=== PATIENT | female | born 1990 ===

== ENCOUNTER 2024-08-06 21:00 | Inpatient (IN) | payer MEDICAID, OTHER, SELFPAY ==
[2024-08-06 22:40] VITALS: BMI 16.4
--- NOTE | 2024-08-07 00:44 | PC.ADMIT ---
Vianey is a 34 year old female, admitted on from [facility] for treatment of psychosis. Pt was presented to [facility] with a chief complaint of auditory hallucination. Family reports she has history of psychosis which required inpatient hospitalization. States she was previously taking risperidone and has been off it for quite some times. She was responding to internal stimuli and appeared to be psychotic. She was trying to leave the POD, [facility] and was given IM Ativan 2mg and haldol 5mg, restrained at 1334 on 08/05. On unit admission, Pt arrived at 2130 on a wheel chair. She was uncooperative with TW during assessment, crying loud, self dialoguing and agitating to go home. Pt appeared to be responding to internal stimuli and hearing voices. She refused to sign/fill any paper works including release of information, Menu, statement of understanding of valuables and notice of rights for temporary involuntary hospitalization. Safety/skin check done, v/s and wt checked. Hospitalist notified for consultation, treatment plan and safety tools was initiated.
--- NOTE | 2024-08-07 04:14 | PC.NURSE ---
Pt requested PRN Atarax @ 6375 and did not take it, held it in her hands and states this is 104mg and not 25mg . Meds collected and wasted. She came back and requested for same meds @ 3465, pretend to take it but cheeks and splits out the meds. Meds recovered and wasted by RN
[2024-08-07 07:38] VITALS: BP 99/70; PULSE 109; RESP 16; TEMP 37.1; O2SAT 99
--- NOTE | 2024-08-07 08:52 | P.HPPS_ITS ---
HPI Date of Service: 08/07/24 Chief Complaint: unspecified schizophrenia Sources of Information: patient interviewed, chart reviewed and crisis/core team assessment reviewed HPI Subjective Notes: Amaral Warning and Conditional Voluntary Narrative: Patient is a 34-year-old female with history of psychosis who presented to ER with family due to not eating or drinking and auditory hallucinations secondary to medication noncompliance. Per crisis report, patient presented to ER with family due to not eating or drinking. Patient told family she is hearing voices and crying a lot. Family reports patient has a history of psychosis which has required inpatient hospitalization. History of taking risperidone, which she has not taken for quite some time. Patient history limited due to patient responding to internal stimuli during assessment. Utox negative. During admission assessment, patient presents calm, cooperative and guarded. Thought blocking. Delayed responses. Patient reports she came to the hospital because my friend brought me since I ate something I was not supposed to eat and I have not slept in 4 days . Patient did not disclose what she believes she ate that she was not supposed to. denies substance use. Utox negative. Patient signed CV and stated she would like help . denies SI/HI/VH/AH. Patient appears to be internally preoccupied during assessment. She reports history of having auditory hallucinations however, could not recall what medication she took to make her feel better. Discussed starting on risperidone; patient agreed to trial. Past Psychiatric History: Per crisis report, patient hospitalized in 2022. History of taking risperidone. Medical Evaluation Reviewed: Yes [facility] Family History: Denies Social History: Lives with roommate, single, one 9-year-old son. 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 Substance History: Denies Trauma History: Denies Diagnostics Vital Signs (24Hr): Vital Signs - 24 hr 08/07/24 07:38 Temperature 98.8 F Pulse Rate 109 H Respiratory Rate 16 Blood Pressure 99/70 Pulse Oximetry 99 Oxygen Delivery Method Room Air BMI result Body Mass Index 16.4 Meds/Allergies Meds Home Medications ?Medication ?Instructions ?Recorded ?Confirmed ?Type No Known Home Meds 08/07/24 08/07/24 History Allergies Allergies Allergy/AdvReac Type Severity Reaction Status Date / Time No Known Allergies Allergy Verified 08/06/24 22:09 Mental Status Exam Mental Status Exam Patient Appearance: Appropriate Patient Orientation: Person, Place and Situation Level of Consciousness: Awake and Alert Patient Behavior: Guarded and Good Eye Contact Mood Description: Anxious Affect Description: Blunted Ability to Follow Directions: Fair Speech Pattern: Clear and Delayed Thought Content: positive for Thought Blocking Assessment & Plan Assessment & Plan (1) Psychosis: Status: Acute Code(s): F29 - Unspecified psychosis not due to a substance or known physiological condition Plan Patient is a 34-year-old female with history of psychosis who presented to ER with family due to not eating or drinking and auditory hallucinations secondary to medication noncompliance. Plan: CV 15 minute safety checks Start: Risperdal 1 mg b.i.d. Obtain collateral Encourage groups Referral to outpatient psychiatric providers Discharge planning Patient educated on: diagnosis and medication risk/benefits Reason for continued inpatient stay Substantial Risk for: med/psych decompensation Statement Statement: I have reviewed the history and physical and performed a pertinent examination on my patient. No changes have occurred unless specified. If the History and Physical was not performed prior to admission, the Hospitalist's service will be consulted for completing the admission physical. Time Spent With Patient Time: Total time managing care of this patient today _60___ minutes.
--- NOTE | 2024-08-07 09:58 | PM.EVENT ---
Event Note Date of Service: 08/07/24 Event Note: Hospitalist consult for new psych admission transfer from [facility]. per chart no medical history aside from mood disorder. attempted to meet with pt and she declined. states she is waiting for dinner (it's 10am). when asked again about any medical concerns she turned her head and did not respond. Thank you for allowing me to participate in the pt's care, she declined medical consult at this time. Please contact the medical team if any questions or concerns. Time Spent With Patient Time: Total time managing care of this patient today 5 minutes.
[2024-08-07] MEDS: risperiDONE 1 MG TABLET PO ×2 (10:34→18:54)
[2024-08-07] MEDS: LORazepam 0.5 MG TABLET PO (18:55)
[2024-08-07 20:00] VITALS: BP 103/64; PULSE 111; RESP 17; TEMP 36.4; O2SAT 100
[2024-08-08 07:00] VITALS: BMI 16.5
[2024-08-08 07:20] VITALS: BP 109/70; PULSE 120; RESP 14; TEMP 36.6; O2SAT 98
[2024-08-08] MEDS: risperiDONE 1 MG TABLET PO ×2 (08:22→20:22)
--- NOTE | 2024-08-08 09:30 | P.PNPSI_ITS ---
Subjective Subjective Date of Service: 08/08/24 Reason For Visit: unspecified schizophrenia Subjective Notes: Conditional Voluntary Interim History: Keeping to self. observing pacing unit hallway. Paranoid. Met with patient in unit office. presents guarded and thought blocking. She reports feeling okay then stated, you are infusing chemicals into this place to make me feel tired . She continues internally preoccupied but denies AH/VH. Pt walked out of interv iew room mid conversation when asked if she felt safe on the unit. per nursing, slept 7 hours. medication compliant. Continue current tx plan. Medication Compliance: Yes Side effects from medications: No Attending Groups: No Review of Systems Constitutional: Reports as per HPI Eyes: Reports as per HPI Reports as per HPI Cardiovascular: Reports as per HPI Respiratory: Reports as per HPI Gastrointestinal: Reports as per HPI Genitourinary: Reports as per HPI Musculoskeletal: Reports as per HPI Skin/Breast: Reports as per HPI Reports as per HPI Psychiatric: Reports as per HPI Endocrine: Reports as per HPI Hematologic/Lymphatic: Reports as per HPI Allergic/Immunologic: Reports as per HPI Mental Status Exam Mental Status Exam Narrative: Pt is alert and oriented; behavior is guarded; dressed in casual attire; mood is described as fine ; eye contact appropriate; Speech is slow rate, low volume; guarded, paranoid ideations; appears to be internally preoccupied however denying AH/VH. Diagnostics Vital Signs (24Hr): Vital Signs - 24 hr 08/07/24 20:00 08/08/24 07:20 Temperature 97.5 F 97.8 F Pulse Rate 111 H 120 H Respiratory Rate 17 14 Blood Pressure 103/64 109/70 Pulse Oximetry 100 98 Oxygen Delivery Method Room Air Room Air BMI result Body Mass Index 16.4 Medications Medications Current Medications Acetaminophen (Acetaminophen 325 Mg Tablet) 650 mg PO Q6H PRN PRN Reason: Headache/Pain Mild Scale (1-3) Al Hydroxide/Mg Hydroxide (Magnesium Hydrox/Alum Hydrox 30 Ml Oral.Susp) 30 ml PO Q6H PRN PRN Reason: Heartburn/Nausea Hydroxyzine HCl (Hydroxyzine Hcl 25 Mg Tablet) 25 mg PO Q6H PRN PRN Reason: Anxiety Lorazepam (Lorazepam 0.5 Mg Tablet) 0.5 mg PO BEDTIME [facility] Last Admin: 08/07/24 18:55 Dose: 0.5 mg Magnesium Hydroxide (Milk Of Magnesia 30 Ml Oral.Susp) 30 ml PO DAILY PRN PRN Reason: Constipation Nicotine Polacrilex (Nicotine Polacrilex 2 Mg Gum) 4 mg BUCCAL Q2H PRN PRN Reason: Nicotine Cravings Risperidone (Risperidone 1 Mg Tablet) 1 mg PO BID [facility] Last Admin: 08/08/24 08:22 Dose: 1 mg Trazodone HCl (Trazodone Hcl 50 Mg Tablet) 50 mg PO BEDTIME MRX1 PRN PRN Reason: Insomnia Allergies Allergies Allergy/AdvReac Type Severity Reaction Status Date / Time No Known Allergies Allergy Verified 08/06/24 22:09 Assessment & Plan Assessment & Plan (1) Psychosis: Status: Acute Code(s): F29 - Unspecified psychosis not due to a substance or known physiological condition Plan Patient is a 34-year-old female with history of psychosis who presented to ER with family due to not eating or drinking and auditory hallucinations secondary to medication noncompliance. Plan: CV 15 minute safety checks Start: Risperdal 1 mg b.i.d. Obtain collateral Encourage groups Referral to outpatient psychiatric providers Discharge planning 08/08: Keeping to self. observing pacing unit hallway. Paranoid. Met with patient in unit office. presents guarded and thought blocking. She reports feeling okay then stated, you are infusing chemicals into this place to make me feel tired . She continues internally preoccupied but denies AH/VH. Pt walked out of interview room mid conversation when asked if she felt safe on the unit. per nursing, slept 7 hours. medication compliant. Continue current tx plan. Patient educated on: medication risk/benefits Reason for continued inpatient stay Substantial Risk for: med/psych decompensation Time Spent With Patient Time: Total time managing care of this patient today _20___ minutes.
[2024-08-08 13:03] VITALS: BMI 36.5
[2024-08-08 19:45] VITALS: BP 96/57; PULSE 99; RESP 14; TEMP 36.8; O2SAT 99
[2024-08-08] MEDS: LORazepam 0.5 MG TABLET PO (20:21)
[2024-08-09 07:30] VITALS: BP 99/63; PULSE 94; RESP 14; O2SAT 99
--- NOTE | 2024-08-09 09:40 | HO.PSYCHPN ---
Subjective Subjective Date of Service: 08/09/24 Reason For Visit: unspecified schizophrenia Subjective Notes: Conditional Voluntary Interim History: Keeping to self. Patient continues to present guarded. Some thought blocking, appears to be less than days prior. Patient reports feeling okay today; difficult to engage, delayed responses. When asked if she is still concerned if staff are infusing chemicals into hospital; pt denied every making this statement. Continue current tx plan. Medication Compliance: Yes Side effects from medications: No Attending Groups: No Review of Systems Constitutional: Reports as per HPI Eyes: Reports as per HPI Reports as per HPI Cardiovascular: Reports as per HPI Respiratory: Reports as per HPI Gastrointestinal: Reports as per HPI Musculoskeletal: Reports as per HPI Skin/Breast: Reports as per HPI Reports as per HPI Psychiatric: Reports as per HPI Endocrine: Reports as per HPI Hematologic/Lymphatic: Reports as per HPI Allergic/Immunologic: Reports as per HPI Mental Status Exam Mental Status Exam Narrative: Pt is alert and oriented; behavior is guarded; dressed in casual attire; mood is described as fine ; eye contact appropriate; Speech is slow rate, low volume; guarded, difficult to engage; appears to be internally preoccupied however denying AH/VH. Diagnostics Vital Signs (24Hr): Vital Signs - 24 hr 08/08/24 19:45 08/09/24 07:30 Temperature 98.3 F Pulse Rate 99 94 Respiratory Rate 14 14 Blood Pressure 96/57 L 99/63 Pulse Oximetry 99 99 Oxygen Delivery Method Room Air Room Air BMI result Body Mass Index 36.5 Medications Medications Current Medications Acetaminophen (Acetaminophen 325 Mg Tablet) 650 mg PO Q6H PRN PRN Reason: Headache/Pain Mild Scale (1-3) Al Hydroxide/Mg Hydroxide (Magnesium Hydrox/Alum Hydrox 30 Ml Oral.Susp) 30 ml PO Q6H PRN PRN Reason: Heartburn/Nausea Hydroxyzine HCl (Hydroxyzine Hcl 25 Mg Tablet) 25 mg PO Q6H PRN PRN Reason: Anxiety Lorazepam (Lorazepam 0.5 Mg Tablet) 0.5 mg PO BEDTIME [facility] Last Admin: 08/08/24 20:21 Dose: 0.5 mg Magnesium Hydroxide (Milk Of Magnesia 30 Ml Oral.Susp) 30 ml PO DAILY PRN PRN Reason: Constipation Nicotine Polacrilex (Nicotine Polacrilex 2 Mg Gum) 4 mg BUCCAL Q2H PRN PRN Reason: Nicotine Cravings Risperidone (Risperidone 1 Mg Tablet) 1 mg PO BID [facility] Last Admin: 08/08/24 20:22 Dose: 1 mg Trazodone HCl (Trazodone Hcl 50 Mg Tablet) 50 mg PO BEDTIME MRX1 PRN PRN Reason: Insomnia Allergies Allergies Allergy/AdvReac Type Severity Reaction Status Date / Time No Known Allergies Allergy Verified 08/06/24 22:09 Assessment & Plan Assessment & Plan (1) Psychosis: Status: Acute Code(s): F29 - Unspecified psychosis not due to a substance or known physiological condition Plan Patient is a 34-year-old female with history of psychosis who presented to ER with family due to not eating or drinking and auditory hallucinations secondary to medication noncompliance. Plan: CV 15 minute safety checks Start: Risperdal 1 mg b.i.d. Obtain collateral Encourage groups Referral to outpatient psychiatric providers Discharge planning 08/08: Keeping to self. observing pacing unit hallway. Paranoid. Met with patient in unit office. presents guarded and thought blocking. She reports feeling okay then stated, you are infusing chemicals into this place to make me feel tired . She continues internally preoccupied but denies AH/VH. Pt walked out of interview room mid conversation when asked if she felt safe on the unit. per nursing, slept 7 hours. medication compliant. Continue current tx plan. 08/09: Keeping to self. Patient continues to present guarded. Some thought blocking, appears to be less than days prior. Patient reports feeling okay today; difficult to engage, delayed responses. When asked if she is still concerned if staff are infusing chemicals into hospital; pt denied every making this statement. Continue current tx plan. Patient educated on: medication risk/benefits Reason for continued inpatient stay Substantial Risk for: med/psych decompensation Time Spent With Patient Time: Total time managing care of this patient today _20___ minutes.
[2024-08-09] MEDS: risperiDONE 1 MG TABLET PO (10:16)
[2024-08-09 19:54] VITALS: BP 103/57; PULSE 108; RESP 16; TEMP 36.4; O2SAT 99
[2024-08-10 07:54] VITALS: BP 101/61; PULSE 95; RESP 14; O2SAT 99
--- NOTE | 2024-08-10 19:34 | HO.PSYCHPN ---
Subjective Subjective Date of Service: 08/10/24 Reason For Visit: unspecified schizophrenia Interim History: calm, cooperative. somewhat bizarre posturing, arm/hand positioning. no complaints or requests aside from stating her bowels are moving slowly. she agrees to trial of senna/docusate. per staff, bizarre. keeping to herself. refusing meds. slept only a few hours. Mental Status Exam Mental Status Exam Narrative: Pt is alert and oriented; behavior is guarded; dressed in casual attire; mood is described as fine ; eye contact poor; Speech is slow rate, low volume; guarded, difficult to engage; appears to be internally preoccupied however denying AH/VH. Diagnostics Vital Signs (24Hr): Vital Signs - 24 hr 08/09/24 19:54 08/10/24 07:54 Temperature 97.6 F Pulse Rate 108 H 95 Respiratory Rate 16 14 Blood Pressure 103/57 L 101/61 Pulse Oximetry 99 99 Oxygen Delivery Method Room Air Room Air BMI result Body Mass Index 36.5 Medications Medications Current Medications Acetaminophen (Acetaminophen 325 Mg Tablet) 650 mg PO Q6H PRN PRN Reason: Headache/Pain Mild Scale (1-3) Al Hydroxide/Mg Hydroxide (Magnesium Hydrox/Alum Hydrox 30 Ml Oral.Susp) 30 ml PO Q6H PRN PRN Reason: Heartburn/Nausea Hydroxyzine HCl (Hydroxyzine Hcl 25 Mg Tablet) 25 mg PO Q6H PRN PRN Reason: Anxiety Lorazepam (Lorazepam 0.5 Mg Tablet) 0.5 mg PO BEDTIME [facility] Last Admin: 08/09/24 22:35 Dose: Not Given Magnesium Hydroxide (Milk Of Magnesia 30 Ml Oral.Susp) 30 ml PO DAILY PRN PRN Reason: Constipation Nicotine Polacrilex (Nicotine Polacrilex 2 Mg Gum) 4 mg BUCCAL Q2H PRN PRN Reason: Nicotine Cravings Risperidone (Risperidone 1 Mg Tablet) 1 mg PO BID [facility] Last Admin: 08/10/24 08:37 Dose: Not Given Senna/Docusate Sodium (Sennosides/Docusate Sodium Tablet) 1 tab PO BID [facility] Last Admin: 08/10/24 15:30 Dose: Not Given Trazodone HCl (Trazodone Hcl 50 Mg Tablet) 50 mg PO BEDTIME MRX1 PRN PRN Reason: Insomnia Allergies Allergies Allergy/AdvReac Type Severity Reaction Status Date / Time No Known Allergies Allergy Verified 08/06/24 22:09 Assessment & Plan Assessment & Plan (1) Psychosis: Status: Acute Code(s): F29 - Unspecified psychosis not due to a substance or known physiological condition Plan Patient is a 34-year-old female with history of psychosis who presented to ER with family due to not eating or drinking and auditory hallucinations secondary to medication noncompliance. Plan: CV 15 minute safety checks Start: Risperdal 1 mg b.i.d. Obtain collateral Encourage groups Referral to outpatient psychiatric providers Discharge planning 08/08: Keeping to self. observing pacing unit hallway. Paranoid. Met with patient in unit office. presents guarded and thought blocking. She reports feeling okay then stated, you are infusing chemicals into this place to make me feel tired . She continues internally preoccupied but denies AH/VH. Pt walked out of interview room mid conversation when asked if she felt safe on the unit. per nursing, slept 7 hours. medication compliant. Continue current tx plan. 08/09: Keeping to self. Patient continues to present guarded. Some thought blocking, appears to be less than days prior. Patient reports feeling okay today; difficult to engage, delayed responses. When asked if she is still concerned if staff are infusing chemicals into hospital; pt denied every making this statement. Continue current tx plan. 08/10: c/o constipation, agreed to take senna/docusate, then refused when offered. bizarre posturing, poor eye contact. continue current mgmt, appears to be experiencing gradual improvement. Reason for continued inpatient stay Substantial Risk for: inability to function Time Spent With Patient Time: Total time managing care of this patient today ____ minutes.
[2024-08-10 19:44] VITALS: BP 107/74; PULSE 78; RESP 16; TEMP 36.7; O2SAT 100
[2024-08-11] MEDS: Sennosides/Docusate Sodium TABLET 1 TAB PO ×2 (08:11→21:13)
[2024-08-11] MEDS: risperiDONE 1 MG TABLET PO ×2 (08:11→21:13)
--- NOTE | 2024-08-11 12:55 | P.PNPSI_ITS ---
Subjective Subjective Date of Service: 08/11/24 Reason For Visit: unspecified schizophrenia Interim History: pt wandering unit. non-verbally declines interview by shaking her head and looking down. per staff, refusing medications. sleeping in bed and on couch in sensory room. not engaging with staff. refusing senna and colace, which she asked for and agreed to take yesterday. Mental Status Exam Mental Status Exam Narrative: Pt is alert and oriented; behavior is guarded; dressed in casual attire; mood is not assessed; eye contact poor; Speech absent; difficult to engage; appears to be internally preoccupied. no SI/HI/AH/VH expressed. Diagnostics Vital Signs (24Hr): Vital Signs - 24 hr 08/10/24 19:44 Temperature 98.0 F Pulse Rate 78 Respiratory Rate 16 Blood Pressure 107/74 Pulse Oximetry 100 Oxygen Delivery Method Room Air BMI result Body Mass Index 36.5 Medications Medications Current Medications Acetaminophen (Acetaminophen 325 Mg Tablet) 650 mg PO Q6H PRN PRN Reason: Headache/Pain Mild Scale (1-3) Al Hydroxide/Mg Hydroxide (Magnesium Hydrox/Alum Hydrox 30 Ml Oral.Susp) 30 ml PO Q6H PRN PRN Reason: Heartburn/Nausea Hydroxyzine HCl (Hydroxyzine Hcl 25 Mg Tablet) 25 mg PO Q6H PRN PRN Reason: Anxiety Lorazepam (Lorazepam 0.5 Mg Tablet) 0.5 mg PO BEDTIME [facility] Last Admin: 08/10/24 22:44 Dose: Not Given Magnesium Hydroxide (Milk Of Magnesia 30 Ml Oral.Susp) 30 ml PO DAILY PRN PRN Reason: Constipation Nicotine Polacrilex (Nicotine Polacrilex 2 Mg Gum) 4 mg BUCCAL Q2H PRN PRN Reason: Nicotine Cravings Risperidone (Risperidone 1 Mg Tablet) 1 mg PO BID [facility] Last Admin: 08/11/24 08:11 Dose: 1 mg Senna/Docusate Sodium (Sennosides/Docusate Sodium Tablet) 1 tab PO BID [facility] Last Admin: 08/11/24 08:11 Dose: 1 tab Trazodone HCl (Trazodone Hcl 50 Mg Tablet) 50 mg PO BEDTIME MRX1 PRN PRN Reason: Insomnia Allergies Allergies Allergy/AdvReac Type Severity Reaction Status Date / Time No Known Allergies Allergy Verified 08/06/24 22:09 Assessment & Plan Assessment & Plan (1) Psychosis: Status: Acute Code(s): F29 - Unspecified psychosis not due to a substance or known physiological condition Plan Patient is a 34-year-old female with history of psychosis who presented to ER with family due to not eating or drinking and auditory hallucinations secondary to medication noncompliance. Plan: CV 15 minute safety checks Start: Risperdal 1 mg b.i.d. Obtain collateral Encourage groups Referral to outpatient psychiatric providers Discharge planning 08/08: Keeping to self. observing pacing unit hallway. Paranoid. Met with patient in unit office. presents guarded and thought blocking. She reports feeling okay then stated, you are infusing chemicals into this place to make me feel tired . She continues internally preoccupied but denies AH/VH. Pt walked out of interview room mid conversation when asked if she felt safe on the unit. per nursing, slept 7 hours. medication compliant. Continue current tx plan. 08/09: Keeping to self. Patient continues to present guarded. Some thought blocking, appears to be less than days prior. Patient reports feeling okay today; difficult to engage, delayed responses. When asked if she is still concerned if staff are infusing chemicals into hospital; pt denied every making this statement. Continue current tx plan. 08/10: c/o constipation, agreed to take senna/docusate, then refused when offered. bizarre posturing, poor eye contact. continue current mgmt, appears to be experiencing gradual improvement. 08/11: refusing meds. not engaging with staff. walking the unit. continue to offer appropriate medication. Reason for continued inpatient stay Substantial Risk for: inability to function Time Spent With Patient Time: Total time managing care of this patient today ____ minutes.
[2024-08-11 19:40] VITALS: BP 100/69; PULSE 80; RESP 16; TEMP 36.5; O2SAT 100
[2024-08-11] MEDS: LORazepam 0.5 MG TABLET PO (21:13)
[2024-08-12] MEDS: risperiDONE 1 MG TABLET PO (08:23)
[2024-08-12] MEDS: Sennosides/Docusate Sodium TABLET 1 TAB PO (08:23)
[2024-08-12] MEDS: HaloperidoL 5 MG TABLET PO (09:22)
--- NOTE | 2024-08-12 15:43 | HO.PSYCHPN ---
Subjective Subjective Date of Service: 08/12/24 Reason For Visit: unspecified schizophrenia Subjective Notes: Conditional Voluntary Interim History: Keeping to self. Per nursing, asked for medication this morning d/t auditory hallucinations. When T/W went to meet with her, pt declined to meet. Would not answer questions, sat on bed with blanket wrapped around self. Appears internally preoccupied, smiling and giggling at times. Risperidal increased to 1mg PO daily and 2mg PO bedtime. Medication Compliance: Intermittent Attending Groups: No Review of Systems Review of Systems Yes Unobtainable due to mental status Mental Status Exam Mental Status Exam Patient Appearance: Malodorous Level of Consciousness: Awake Patient Behavior: Guarded and Poor Eye Contact Mood Description: Suspicious Affect Description: Blunted Speech Pattern: No Speech Diagnostics Vital Signs (24Hr): Vital Signs - 24 hr 08/11/24 19:40 Temperature 97.7 F Pulse Rate 80 Respiratory Rate 16 Blood Pressure 100/69 Pulse Oximetry 100 Oxygen Delivery Method Room Air BMI result Body Mass Index 36.5 Medications Medications Current Medications Acetaminophen (Acetaminophen 325 Mg Tablet) 650 mg PO Q6H PRN PRN Reason: Headache/Pain Mild Scale (1-3) Al Hydroxide/Mg Hydroxide (Magnesium Hydrox/Alum Hydrox 30 Ml Oral.Susp) 30 ml PO Q6H PRN PRN Reason: Heartburn/Nausea Haloperidol (Haloperidol 5 Mg Tablet) 5 mg PO BID PRN PRN Reason: psychosis Last Admin: 08/12/24 09:22 Dose: 5 mg Hydroxyzine HCl (Hydroxyzine Hcl 25 Mg Tablet) 25 mg PO Q6H PRN PRN Reason: Anxiety Lorazepam (Lorazepam 1 Mg Tablet) 1 mg PO BEDTIME [facility] Magnesium Hydroxide (Milk Of Magnesia 30 Ml Oral.Susp) 30 ml PO DAILY PRN PRN Reason: Constipation Nicotine Polacrilex (Nicotine Polacrilex 2 Mg Gum) 4 mg BUCCAL Q2H PRN PRN Reason: Nicotine Cravings Risperidone (Risperidone 2 Mg Tablet) 2 mg PO BEDTIME [facility] Risperidone (Risperidone 1 Mg Tablet) 1 mg PO DAILY [facility] Senna/Docusate Sodium (Sennosides/Docusate Sodium Tablet) 1 tab PO BID [facility] Last Admin: 08/12/24 08:23 Dose: 1 tab Trazodone HCl (Trazodone Hcl 50 Mg Tablet) 50 mg PO BEDTIME MRX1 PRN PRN Reason: Insomnia Allergies Allergies Allergy/AdvReac Type Severity Reaction Status Date / Time No Known Allergies Allergy Verified 08/06/24 22:09 Assessment & Plan Assessment & Plan (1) Psychosis: Status: Acute Code(s): F29 - Unspecified psychosis not due to a substance or known physiological condition Plan Patient is a 34-year-old female with history of psychosis who presented to ER with family due to not eating or drinking and auditory hallucinations secondary to medication noncompliance. Plan: CV 15 minute safety checks Start: Risperdal 1 mg b.i.d. Obtain collateral Encourage groups Referral to outpatient psychiatric providers Discharge planning 08/08: Keeping to self. observing pacing unit hallway. Paranoid. Met with patient in unit office. presents guarded and thought blocking. She reports feeling okay then stated, you are infusing chemicals into this place to make me feel tired . She continues internally preoccupied but denies AH/VH. Pt walked out of interview room mid conversation when asked if she felt safe on the unit. per nursing, slept 7 hours. medication compliant. Continue current tx plan. 08/09: Keeping to self. Patient continues to present guarded. Some thought blocking, appears to be less than days prior. Patient reports feeling okay today; difficult to engage, delayed responses. When asked if she is still concerned if staff are infusing chemicals into hospital; pt denied every making this statement. Continue current tx plan. 08/10: c/o constipation, agreed to take senna/docusate, then refused when offered. bizarre posturing, poor eye contact. continue current mgmt, appears to be experiencing gradual improvement. 08/11: refusing meds. not engaging with staff. walking the unit. continue to offer appropriate medication. 08/12: Keeping to self. Per nursing, asked for medication this morning d/t auditory hallucinations. When T/W went to meet with her, pt declined to meet. Would not answer questions, sat on bed with blanket wrapped around self. Appears internally preoccupied, smiling and giggling at times. Risperidal increased to 1mg PO daily and 2mg PO bedtime. Patient educated on: medication risk/benefits Reason for continued inpatient stay Substantial Risk for: med/psych decompensation Time Spent With Patient Time: Total time managing care of this patient today _20___ minutes.
[2024-08-12 19:41] VITALS: BP 108/65; PULSE 88; RESP 16; O2SAT 100
[2024-08-13 07:53] VITALS: BP 100/63; PULSE 103; RESP 16; O2SAT 100
[2024-08-13] MEDS: risperiDONE 1 MG TABLET PO (09:58)
[2024-08-13] MEDS: Sennosides/Docusate Sodium TABLET 1 TAB PO ×2 (09:59→21:29)
--- NOTE | 2024-08-13 10:28 | HO.PSYCHPN ---
Subjective Subjective Date of Service: 08/13/24 Reason For Visit: unspecified schizophrenia Subjective Notes: Conditional Voluntary Interim History: Keeping to self. Observed pacing unit hallway. Guarded. Pt had verbal outburst this morning where she began to cry and scream; pt was able to calm self down. Declined medications last night and this morning. Patient came up to T/W and stated, I'm hearing voices ; she was encouraged to take medication prescribed; when nursing offered, pt declined medication. per nursing, showered. DC Risperidal. Start: Haldol 5mg PO BID Medication Compliance: Intermittent Review of Systems Constitutional: Reports as per HPI Eyes: Reports as per HPI Reports as per HPI Cardiovascular: Reports as per HPI Respiratory: Reports as per HPI Gastrointestinal: Reports as per HPI Musculoskeletal: Reports as per HPI Skin/Breast: Reports as per HPI Reports as per HPI Psychiatric: Reports as per HPI Endocrine: Reports as per HPI Hematologic/Lymphatic: Reports as per HPI Allergic/Immunologic: Reports as per HPI Mental Status Exam Mental Status Exam Narrative: Pt is alert and oriented; behavior is guarded; dressed in casual attire; mood is not assessed; eye contact poor; Speech is low, minimal; difficult to engage; appears to be internally preoccupied. no SI/HI/VH expressed. She reports auditory hallucinations but does not disclose what they are saying to her. Diagnostics Vital Signs (24Hr): Vital Signs - 24 hr 08/12/24 19:41 08/13/24 07:53 Pulse Rate 88 103 H Respiratory Rate 16 16 Blood Pressure 108/65 100/63 Pulse Oximetry 100 100 Oxygen Delivery Method Room Air Room Air BMI result Body Mass Index 36.5 Medications Medications Current Medications Acetaminophen (Acetaminophen 325 Mg Tablet) 650 mg PO Q6H PRN PRN Reason: Headache/Pain Mild Scale (1-3) Al Hydroxide/Mg Hydroxide (Magnesium Hydrox/Alum Hydrox 30 Ml Oral.Susp) 30 ml PO Q6H PRN PRN Reason: Heartburn/Nausea Haloperidol (Haloperidol 5 Mg Tablet) 5 mg PO BID PRN PRN Reason: psychosis Last Admin: 08/12/24 09:22 Dose: 5 mg Hydroxyzine HCl (Hydroxyzine Hcl 25 Mg Tablet) 25 mg PO Q6H PRN PRN Reason: Anxiety Lorazepam (Lorazepam 1 Mg Tablet) 1 mg PO BEDTIME [facility] Last Admin: 08/12/24 21:16 Dose: Not Given Magnesium Hydroxide (Milk Of Magnesia 30 Ml Oral.Susp) 30 ml PO DAILY PRN PRN Reason: Constipation Nicotine Polacrilex (Nicotine Polacrilex 2 Mg Gum) 4 mg BUCCAL Q2H PRN PRN Reason: Nicotine Cravings Risperidone (Risperidone 2 Mg Tablet) 2 mg PO BEDTIME [facility] Last Admin: 08/12/24 21:16 Dose: Not Given Risperidone (Risperidone 1 Mg Tablet) 1 mg PO DAILY [facility] Last Admin: 08/13/24 09:58 Dose: 1 mg Senna/Docusate Sodium (Sennosides/Docusate Sodium Tablet) 1 tab PO BID [facility] Last Admin: 08/13/24 09:59 Dose: 1 tab Trazodone HCl (Trazodone Hcl 50 Mg Tablet) 50 mg PO BEDTIME MRX1 PRN PRN Reason: Insomnia Allergies Allergies Allergy/AdvReac Type Severity Reaction Status Date / Time No Known Allergies Allergy Verified 08/06/24 22:09 Assessment & Plan Assessment & Plan (1) Psychosis: Status: Acute Code(s): F29 - Unspecified psychosis not due to a substance or known physiological condition Plan Patient is a 34-year-old female with history of psychosis who presented to ER with family due to not eating or drinking and auditory hallucinations secondary to medication noncompliance. Plan: CV 15 minute safety checks Start: Risperdal 1 mg b.i.d. Obtain collateral Encourage groups Referral to outpatient psychiatric providers Discharge planning 08/08: Keeping to self. observing pacing unit hallway. Paranoid. Met with patient in unit office. presents guarded and thought blocking. She reports feeling okay then stated, you are infusing chemicals into this place to make me feel tired . She continues internally preoccupied but denies AH/VH. Pt walked out of interview room mid conversation when asked if she felt safe on the unit. per nursing, slept 7 hours. medication compliant. Continue current tx plan. 08/09: Keeping to self. Patient continues to present guarded. Some thought blocking, appears to be less than days prior. Patient reports feeling okay today; difficult to engage, delayed responses. When asked if she is still concerned if staff are infusing chemicals into hospital; pt denied every making this statement. Continue current tx plan. 08/10: c/o constipation, agreed to take senna/docusate, then refused when offered. bizarre posturing, poor eye contact. continue current mgmt, appears to be experiencing gradual improvement. 08/11: refusing meds. not engaging with staff. walking the unit. continue to offer appropriate medication. 08/12: Keeping to self. Per nursing, asked for medication this morning d/t auditory hallucinations. When T/W went to meet with her, pt declined to meet. Would not answer questions, sat on bed with blanket wrapped around self. Appears internally preoccupied, smiling and giggling at times. Risperidal increased to 1mg PO daily and 2mg PO bedtime. 08/13: Keeping to self. Observed pacing unit hallway. Guarded. Pt had verbal outburst this morning where she began to cry and scream; pt was able to calm self down. Declined medications last night and this morning. Patient came up to T/W and stated, I'm hearing voices ; she was encouraged to take medication prescribed; when nursing offered, pt declined medication. per nursing, showered. DC Risperidal. Start: Haldol 5mg PO BID Patient educated on: diagnosis and medication risk/benefits Reason for continued inpatient stay Substantial Risk for: med/psych decompensation Time Spent With Patient Time: Total time managing care of this patient today _20___ minutes.
--- NOTE | 2024-08-13 18:49 | PC.NURSE ---
Pt kept calling her aunt Elo [phone] asking her to pick her up because she's being discharged. Pt and pt's aunt were told several times that pt was not being discharged today but the team would reach out when a discharge plan is in place.
[2024-08-13 19:57] VITALS: BP 113/74; PULSE 103; RESP 16; TEMP 36.7; O2SAT 100
[2024-08-13] MEDS: HaloperidoL 5 MG TABLET PO (21:29)
[2024-08-13] MEDS: LORazepam 1 MG TABLET PO (21:29)
[2024-08-14 07:58] VITALS: BP 95/58; PULSE 104; RESP 14; TEMP 36.5; O2SAT 99
[2024-08-14] MEDS: HaloperidoL 5 MG TABLET PO (11:35)
[2024-08-14] MEDS: Sennosides/Docusate Sodium TABLET 1 TAB PO (11:35)
--- NOTE | 2024-08-14 14:45 | P.PNPSI_ITS ---
Subjective Subjective Date of Service: 08/14/24 Reason For Visit: unspecified schizophrenia Subjective Notes: Conditional Voluntary Interim History: Observed pacing unit hallway. Guarded. per nursing, pt has been wandering into other patient's room. When asked why she is doing this, pt stated, I'm tidying up ; pt asked to please not go into peers rooms. Medication compliant last night and this morning; denies any side effects. Continues responding with brief a nswers and in a low volume. blunted affect. denies AH/VH today. Start: Depakote 250mg PO BID Medication Compliance: Intermittent Side effects from medications: No Attending Groups: No Review of Systems Constitutional: Reports as per HPI Eyes: Reports as per HPI Reports as per HPI Cardiovascular: Reports as per HPI Respiratory: Reports as per HPI Gastrointestinal: Reports as per HPI Musculoskeletal: Reports as per HPI Skin/Breast: Reports as per HPI Reports as per HPI Psychiatric: Reports as per HPI Endocrine: Reports as per HPI Hematologic/Lymphatic: Reports as per HPI Allergic/Immunologic: Reports as per HPI Mental Status Exam Mental Status Exam Narrative: Pt is alert and oriented; behavior is guarded; dressed in casual attire; mood is not assessed; eye contact poor; Speech is low, minimal; difficult to engage; appears to be internally preoccupied. no SI/HI/VH/AH expressed. Diagnostics Vital Signs (24Hr): Vital Signs - 24 hr 08/13/24 19:57 08/14/24 07:58 Temperature 98.0 F 97.7 F Pulse Rate 103 H 104 H Respiratory Rate 16 14 Blood Pressure 113/74 95/58 L Pulse Oximetry 100 99 Oxygen Delivery Method Room Air Room Air BMI result Body Mass Index 36.5 Medications Medications Current Medications Acetaminophen (Acetaminophen 325 Mg Tablet) 650 mg PO Q6H PRN PRN Reason: Headache/Pain Mild Scale (1-3) Al Hydroxide/Mg Hydroxide (Magnesium Hydrox/Alum Hydrox 30 Ml Oral.Susp) 30 ml PO Q6H PRN PRN Reason: Heartburn/Nausea Haloperidol (Haloperidol 5 Mg Tablet) 5 mg PO BID [facility] Last Admin: 08/14/24 11:35 Dose: 5 mg Hydroxyzine HCl (Hydroxyzine Hcl 25 Mg Tablet) 25 mg PO Q6H PRN PRN Reason: Anxiety Lorazepam (Lorazepam 1 Mg Tablet) 1 mg PO BEDTIME [facility] Last Admin: 08/13/24 21:29 Dose: 1 mg Magnesium Hydroxide (Milk Of Magnesia 30 Ml Oral.Susp) 30 ml PO DAILY PRN PRN Reason: Constipation Nicotine Polacrilex (Nicotine Polacrilex 2 Mg Gum) 4 mg BUCCAL Q2H PRN PRN Reason: Nicotine Cravings Senna/Docusate Sodium (Sennosides/Docusate Sodium Tablet) 1 tab PO BID [facility] Last Admin: 08/14/24 11:35 Dose: 1 tab Trazodone HCl (Trazodone Hcl 50 Mg Tablet) 50 mg PO BEDTIME MRX1 PRN PRN Reason: Insomnia Allergies Allergies Allergy/AdvReac Type Severity Reaction Status Date / Time No Known Allergies Allergy Verified 08/06/24 22:09 Assessment & Plan Assessment & Plan (1) Psychosis: Status: Acute Code(s): F29 - Unspecified psychosis not due to a substance or known physiological condition Plan Patient is a 34-year-old female with history of psychosis who presented to ER with family due to not eating or drinking and auditory hallucinations secondary to medication noncompliance. Plan: CV 15 minute safety checks Start: Risperdal 1 mg b.i.d. Obtain collateral Encourage groups Referral to outpatient psychiatric providers Discharge planning 08/08: Keeping to self. observing pacing unit hallway. Paranoid. Met with patient in unit office. presents guarded and thought blocking. She reports feeling okay then stated, you are infusing chemicals into this place to make me feel tired . She continues internally preoccupied but denies AH/VH. Pt walked out of interview room mid conversation when asked if she felt safe on the unit. per nursing, slept 7 hours. medication compliant. Continue current tx plan. 08/09: Keeping to self. Patient continues to present guarded. Some thought blocking, appears to be less than days prior. Patient reports feeling okay today; difficult to engage, delayed responses. When asked if she is still concerned if staff are infusing chemicals into hospital; pt denied every making this statement. Continue current tx plan. 08/10: c/o constipation, agreed to take senna/docusate, then refused when offered. bizarre posturing, poor eye contact. continue current mgmt, appears to be experiencing gradual improvement. 08/11: refusing meds. not engaging with staff. walking the unit. continue to offer appropriate medication. 08/12: Keeping to self. Per nursing, asked for medication this morning d/t auditory hallucinations. When T/W went to meet with her, pt declined to meet. Would not answer questions, sat on bed with blanket wrapped around self. Appears internally preoccupied, smiling and giggling at times. Risperidal increased to 1mg PO daily and 2mg PO bedtime. 08/13: Keeping to self. Observed pacing unit hallway. Guarded. Pt had verbal outburst this morning where she began to cry and scream; pt was able to calm self down. Declined medications last night and this morning. Patient came up to T/W and stated, I'm hearing voices ; she was encouraged to take medication prescribed; when nursing offered, pt declined medication. per nursing, showered. DC Risperidal. Start: Haldol 5mg PO BID 08/14: Observed pacing unit hallway. Guarded. per nursing, pt has been wandering into other patient's room. When asked why she is doing this, pt stated, I'm tidying up ; pt asked to please not go into peers rooms. Medication compliant last night and this morning; denies any side effects. Continues responding with brief answers and in a low volume. blunted affect. denies AH/VH today. Start: Depakote 250mg PO BID T/W called pt's aunt Elo to obtain collateral; awaiting callback. Patient educated on: medication risk/benefits Reason for continued inpatient stay Substantial Risk for: med/psych decompensation Time Spent With Patient Time: Total time managing care of this patient today _20___ minutes.
[2024-08-14 19:19] VITALS: BP 112/66; PULSE 95; RESP 16; TEMP 36.8; O2SAT 99
[2024-08-15 07:00] VITALS: BMI 16.7
[2024-08-15 08:00] VITALS: BP 116/78; PULSE 98; RESP 14; O2SAT 99
--- NOTE | 2024-08-15 08:01 | HO.PSYCHPN ---
Subjective Subjective Date of Service: 08/15/24 Reason For Visit: unspecified schizophrenia Subjective Notes: Conditional Voluntary Interim History: keeping to self. pacing unit hallway. Patient tearful during assessment; pt reports feeling depressed ; she reports suicidal ideation because I said things about my family ; pt would not go into detail. She reports auditory hallucinations that criticize her. per nursing, pt requested to take medication but declined when offered. Medication Compliance: Intermittent Side effects from medications: No Attending Groups: No Review of Systems Constitutional: Reports as per HPI Eyes: Reports as per HPI Reports as per HPI Cardiovascular: Reports as per HPI Respiratory: Reports as per HPI Gastrointestinal: Reports as per HPI Genitourinary: Reports as per HPI Musculoskeletal: Reports as per HPI Skin/Breast: Reports as per HPI Reports as per HPI Psychiatric: Reports as per HPI Endocrine: Reports as per HPI Hematologic/Lymphatic: Reports as per HPI Allergic/Immunologic: Reports as per HPI Mental Status Exam Mental Status Exam Narrative: Pt is alert and oriented; behavior is tearful; mood is described as depressed ; eye contact appropriate; Speech is normal rate, low volume and not pressured; guarded, reports suicidal ideation d/t talking about her family . she reports +AH that criticize her. denies HI/VH. Diagnostics Vital Signs (24Hr): Vital Signs - 24 hr 08/14/24 19:19 Temperature 98.2 F Pulse Rate 95 Respiratory Rate 16 Blood Pressure 112/66 Pulse Oximetry 99 Oxygen Delivery Method Room Air BMI result Body Mass Index 36.5 Medications Medications Current Medications Acetaminophen (Acetaminophen 325 Mg Tablet) 650 mg PO Q6H PRN PRN Reason: Headache/Pain Mild Scale (1-3) Al Hydroxide/Mg Hydroxide (Magnesium Hydrox/Alum Hydrox 30 Ml Oral.Susp) 30 ml PO Q6H PRN PRN Reason: Heartburn/Nausea Divalproex Sodium (Divalproex Sodium 250 Mg Tablet.Dr) 250 mg PO BID [facility] Last Admin: 08/14/24 22:27 Dose: Not Given Haloperidol (Haloperidol 5 Mg Tablet) 5 mg PO BID [facility] Last Admin: 08/14/24 22:27 Dose: Not Given Hydroxyzine HCl (Hydroxyzine Hcl 25 Mg Tablet) 25 mg PO Q6H PRN PRN Reason: Anxiety Lorazepam (Lorazepam 1 Mg Tablet) 1 mg PO BEDTIME [facility] Last Admin: 08/14/24 22:27 Dose: Not Given Magnesium Hydroxide (Milk Of Magnesia 30 Ml Oral.Susp) 30 ml PO DAILY PRN PRN Reason: Constipation Nicotine Polacrilex (Nicotine Polacrilex 2 Mg Gum) 4 mg BUCCAL Q2H PRN PRN Reason: Nicotine Cravings Senna/Docusate Sodium (Sennosides/Docusate Sodium Tablet) 1 tab PO BID PRN PRN Reason: Constipation Trazodone HCl (Trazodone Hcl 50 Mg Tablet) 50 mg PO BEDTIME MRX1 PRN PRN Reason: Insomnia Allergies Allergies Allergy/AdvReac Type Severity Reaction Status Date / Time No Known Allergies Allergy Verified 08/06/24 22:09 Assessment & Plan Assessment & Plan (1) Psychosis: Status: Acute Code(s): F29 - Unspecified psychosis not due to a substance or known physiological condition Plan Patient is a 34-year-old female with history of psychosis who presented to ER with family due to not eating or drinking and auditory hallucinations secondary to medication noncompliance. Plan: CV 15 minute safety checks Start: Risperdal 1 mg b.i.d. Obtain collateral Encourage groups Referral to outpatient psychiatric providers Discharge planning 08/08: Keeping to self. observing pacing unit hallway. Paranoid. Met with patient in unit office. presents guarded and thought blocking. She reports feeling okay then stated, you are infusing chemicals into this place to make me feel tired . She continues internally preoccupied but denies AH/VH. Pt walked out of interview room mid conversation when asked if she felt safe on the unit. per nursing, slept 7 hours. medication compliant. Continue current tx plan. 08/09: Keeping to self. Patient continues to present guarded. Some thought blocking, appears to be less than days prior. Patient reports feeling okay today; difficult to engage, delayed responses. When asked if she is still concerned if staff are infusing chemicals into hospital; pt denied every making this statement. Continue current tx plan. 08/10: c/o constipation, agreed to take senna/docusate, then refused when offered. bizarre posturing, poor eye contact. continue current mgmt, appears to be experiencing gradual improvement. 08/11: refusing meds. not engaging with staff. walking the unit. continue to offer appropriate medication. 08/12: Keeping to self. Per nursing, asked for medication this morning d/t auditory hallucinations. When T/W went to meet with her, pt declined to meet. Would not answer questions, sat on bed with blanket wrapped around self. Appears internally preoccupied, smiling and giggling at times. Risperidal increased to 1mg PO daily and 2mg PO bedtime. 08/13: Keeping to self. Observed pacing unit hallway. Guarded. Pt had verbal outburst this morning where she began to cry and scream; pt was able to calm self down. Declined medications last night and this morning. Patient came up to T/W and stated, I'm hearing voices ; she was encouraged to take medication prescribed; when nursing offered, pt declined medication. per nursing, showered. DC Risperidal. Start: Haldol 5mg PO BID 08/14: Observed pacing unit hallway. Guarded. per nursing, pt has been wandering into other patient's room. When asked why she is doing this, pt stated, I'm tidying up ; pt asked to please not go into peers rooms. Medication compliant last night and this morning; denies any side effects. Continues responding with brief answers and in a low volume. blunted affect. denies AH/VH today. Start: Depakote 250mg PO BID T/W called pt's aunt Elo to obtain collateral; awaiting callback. 08/15: keeping to self. pacing unit hallway. Patient tearful during assessment; pt reports feeling depressed ; she reports suicidal ideation because I said things about my family ; pt would not go into detail. She reports auditory hallucinations that criticize her. per nursing, pt requested to take medication but declined when offered. Patient educated on: diagnosis and medication risk/benefits Reason for continued inpatient stay Substantial Risk for: harm to self and med/psych decompensation Time Spent With Patient Time: Total time managing care of this patient today _20___ minutes.
[2024-08-15 20:03] VITALS: BP 96/63; PULSE 80; RESP 16; TEMP 36.8; O2SAT 100
[2024-08-16 07:15] VITALS: BP 97/57; PULSE 78; RESP 14; TEMP 36.9; O2SAT 98
[2024-08-16] MEDS: Divalproex Sodium 250 MG TABLET.DR PO (09:04)
--- NOTE | 2024-08-16 13:39 | P.PNPSI_ITS ---
Subjective Subjective Date of Service: 08/16/24 Reason For Visit: unspecified schizophrenia Subjective Notes: Conditional Voluntary Interim History: keeping to self. guarded today; responding with one word answers. she reports feeling okay , flat affect; took depakote but refused haldol and ativan. T/W spoke with patient's sister, Geena, who reports family does not have a hx of mental illness and pt began acting bizarre last year when [place] came to the [place] Geena stated, last year when she came to [facility] she started acting like this. I know she told me it was very stressful for her to come to [facility] . Geena reports she is not aware of any hx of possible trauma. She reports plan was for patient to move to [place] to be with her this month but patient cancelled plans without a reason. Medication Compliance: Intermittent Side effects from medications: No Attending Groups: No Review of Systems Constitutional: Reports as per HPI Eyes: Reports as per HPI Reports as per HPI Cardiovascular: Reports as per HPI Respiratory: Reports as per HPI Gastrointestinal: Reports as per HPI Musculoskeletal: Reports as per HPI Skin/Breast: Reports as per HPI Reports as per HPI Psychiatric: Reports as per HPI Endocrine: Reports as per HPI Hematologic/Lymphatic: Reports as per HPI Allergic/Immunologic: Reports as per HPI Mental Status Exam Mental Status Exam Narrative: Pt is alert and oriented; behavior is guarded; mood is described as okay ; eye contact appropriate; Speech is normal rate, low volume and not pressured; guarded, denies SI/HI/VH/AH. keeping to self. Diagnostics Vital Signs (24Hr): Vital Signs - 24 hr 08/15/24 20:03 08/16/24 07:15 Temperature 98.3 F 98.4 F Pulse Rate 80 78 Respiratory Rate 16 14 Blood Pressure 96/63 97/57 L Pulse Oximetry 100 98 Oxygen Delivery Method Room Air Room Air BMI result Body Mass Index 16.7 Medications Medications Current Medications Acetaminophen (Acetaminophen 325 Mg Tablet) 650 mg PO Q6H PRN PRN Reason: Headache/Pain Mild Scale (1-3) Al Hydroxide/Mg Hydroxide (Magnesium Hydrox/Alum Hydrox 30 Ml Oral.Susp) 30 ml PO Q6H PRN PRN Reason: Heartburn/Nausea Divalproex Sodium (Divalproex Sodium 250 Mg Tablet.) 250 mg PO BID [facility] Last Admin: 08/16/24 09:04 Dose: 250 mg Haloperidol (Haloperidol 5 Mg Tablet) 5 mg PO BID [facility] Last Admin: 08/16/24 08:28 Dose: Not Given Hydroxyzine HCl (Hydroxyzine Hcl 25 Mg Tablet) 25 mg PO Q6H PRN PRN Reason: Anxiety Lorazepam (Lorazepam 1 Mg Tablet) 1 mg PO BEDTIME [facility] Last Admin: 08/15/24 22:03 Dose: Not Given Magnesium Hydroxide (Milk Of Magnesia 30 Ml Oral.Susp) 30 ml PO DAILY PRN PRN Reason: Constipation Nicotine Polacrilex (Nicotine Polacrilex 2 Mg Gum) 4 mg BUCCAL Q2H PRN PRN Reason: Nicotine Cravings Senna/Docusate Sodium (Sennosides/Docusate Sodium Tablet) 1 tab PO BID PRN PRN Reason: Constipation Trazodone HCl (Trazodone Hcl 50 Mg Tablet) 50 mg PO BEDTIME MRX1 PRN PRN Reason: Insomnia Allergies Allergies Allergy/AdvReac Type Severity Reaction Status Date / Time No Known Allergies Allergy Verified 08/06/24 22:09 Assessment & Plan Assessment & Plan (1) Psychosis: Status: Acute Code(s): F29 - Unspecified psychosis not due to a substance or known physiological condition Plan Patient is a 34-year-old female with history of psychosis who presented to ER with family due to not eating or drinking and auditory hallucinations secondary to medication noncompliance. Plan: CV 15 minute safety checks Start: Risperdal 1 mg b.i.d. Obtain collateral Encourage groups Referral to outpatient psychiatric providers Discharge planning 08/08: Keeping to self. observing pacing unit hallway. Paranoid. Met with patient in unit office. presents guarded and thought blocking. She reports feeling okay then stated, you are infusing chemicals into this place to make me feel tired . She continues internally preoccupied but denies AH/VH. Pt walked out of interview room mid conversation when asked if she felt safe on the unit. per nursing, slept 7 hours. medication compliant. Continue current tx plan. 08/09: Keeping to self. Patient continues to present guarded. Some thought blocking, appears to be less than days prior. Patient reports feeling okay today; difficult to engage, delayed responses. When asked if she is still concerned if staff are infusing chemicals into hospital; pt denied every making this statement. Continue current tx plan. 08/10: c/o constipation, agreed to take senna/docusate, then refused when offered. bizarre posturing, poor eye contact. continue current mgmt, appears to be experiencing gradual improvement. 08/11: refusing meds. not engaging with staff. walking the unit. continue to offer appropriate medication. 08/12: Keeping to self. Per nursing, asked for medication this morning d/t auditory hallucinations. When T/W went to meet with her, pt declined to meet. Would not answer questions, sat on bed with blanket wrapped around self. Appears internally preoccupied, smiling and giggling at times. Risperidal increased to 1mg PO daily and 2mg PO bedtime. 08/13: Keeping to self. Observed pacing unit hallway. Guarded. Pt had verbal outburst this morning where she began to cry and scream; pt was able to calm self down. Declined medications last night and this morning. Patient came up to T/W and stated, I'm hearing voices ; she was encouraged to take medication prescribed; when nursing offered, pt declined medication. per nursing, showered. DC Risperidal. Start: Haldol 5mg PO BID 08/14: Observed pacing unit hallway. Guarded. per nursing, pt has been wandering into other patient's room. When asked why she is doing this, pt stated, I'm tidying up ; pt asked to please not go into peers rooms. Medication compliant last night and this morning; denies any side effects. Continues responding with brief answers and in a low volume. blunted affect. denies AH/VH today. Start: Depakote 250mg PO BID T/W called pt's aunt Elo to obtain collateral; awaiting callback. 08/15: keeping to self. pacing unit hallway. Patient tearful during assessment; pt reports feeling depressed ; she reports suicidal ideation because I said things about my family ; pt would not go into detail. She reports auditory hallucinations that criticize her. per nursing, pt requested to take medicatio n but declined when offered. 08/16: keeping to self. guarded today; responding with one word answers. she reports feeling okay , flat affect; took depakote but refused haldol and ativan. T/W spoke with patient's sister, Geena, who reports family does not have a hx of mental illness and pt began acting bizarre last year when she came to [place] Geena stated, last year when she came to [place] she started acting like this. I know she told me it was very stressful for her to come to [place] . Geena reports she is not aware of any hx of possible trauma. She reports plan was for patient to move to [place] to be with her this month but patient cancelled plans without a reason. Patient educated on: diagnosis and medication risk/benefits Reason for continued inpatient stay Substantial Risk for: med/psych decompensation Time Spent With Patient Time: Total time managing care of this patient today _20___ minutes.
[2024-08-16 20:00] VITALS: BP 100/60; PULSE 79; RESP 16; TEMP 36.5; O2SAT 100
[2024-08-16] MEDS: Acetaminophen 325 MG TABLET 650 MG PO (20:17)
[2024-08-17 07:30] VITALS: BP 87/50; PULSE 78; RESP 14; TEMP 36.9; O2SAT 99
[2024-08-17 08:27] VITALS: BP 114/69; PULSE 87
[2024-08-17] MEDS: Divalproex Sodium 250 MG TABLET.DR PO (08:34)
[2024-08-17] MEDS: HaloperidoL 5 MG TABLET PO (08:34)
--- NOTE | 2024-08-17 08:59 | HO.PSYCHPN ---
Subjective Subjective Date of Service: 08/17/24 Reason For Visit: unspecified schizophrenia Subjective Notes: Conditional Voluntary Interim History: keeping to self. guarded. flat affect; took depakote and haldol this morning but refused HS meds last night. Patient presents more organized during conversation; She reports feeling depressed because I'm in the hospital ; she reports plan of going to [place] to stay with her sister when discharged. When asked if she is having auditory hallucinations; pt stated, I never said had them ; when reminded she had previously told staff and T/W that she was experiences auditory hallucinations, pt stated, No I didn't . denies SI/HI/VH/AH. Medication Compliance: Intermittent Side effects from medications: No Attending Groups: No Review of Systems Constitutional: Reports as per HPI Eyes: Reports as per HPI Reports as per HPI Cardiovascular: Reports as per HPI Respiratory: Reports as per HPI Gastrointestinal: Reports as per HPI Musculoskeletal: Reports as per HPI Skin/Breast: Reports as per HPI Reports as per HPI Psychiatric: Reports as per HPI Endocrine: Reports as per HPI Hematologic/Lymphatic: Reports as per HPI Allergic/Immunologic: Reports as per HPI Mental Status Exam Mental Status Exam Narrative: Pt is alert and oriented; behavior is guarded; mood is described as okay ; eye contact appropriate; Speech is normal rate, low volume and not pressured;denies SI/HI/VH/AH. keeping to self. difficult to engage. more organized today during conversation. Diagnostics Vital Signs (24Hr): Vital Signs - 24 hr 08/16/24 20:00 08/17/24 07:30 08/17/24 08:27 Temperature 97.7 F 98.4 F Pulse Rate 79 78 87 Respiratory Rate 16 14 Blood Pressure 100/60 87/50 L 114/69 Pulse Oximetry 100 99 Oxygen Delivery Method Room Air Room Air BMI result Body Mass Index 16.7 Medications Medications Current Medications Acetaminophen (Acetaminophen 325 Mg Tablet) 650 mg PO Q6H PRN PRN Reason: Headache/Pain Mild Scale (1-3) Last Admin: 08/16/24 20:17 Dose: 650 mg Al Hydroxide/Mg Hydroxide (Magnesium Hydrox/Alum Hydrox 30 Ml Oral.Susp) 30 ml PO Q6H PRN PRN Reason: Heartburn/Nausea Divalproex Sodium (Divalproex Sodium 250 Mg Tablet.Dr) 250 mg PO BID [facility] Last Admin: 08/17/24 08:34 Dose: 250 mg Haloperidol (Haloperidol 5 Mg Tablet) 5 mg PO BID [facility] Last Admin: 08/17/24 08:34 Dose: 5 mg Hydroxyzine HCl (Hydroxyzine Hcl 25 Mg Tablet) 25 mg PO Q6H PRN PRN Reason: Anxiety Lorazepam (Lorazepam 1 Mg Tablet) 1 mg PO BEDTIME [facility] Last Admin: 08/16/24 21:10 Dose: Not Given Magnesium Hydroxide (Milk Of Magnesia 30 Ml Oral.Susp) 30 ml PO DAILY PRN PRN Reason: Constipation Nicotine Polacrilex (Nicotine Polacrilex 2 Mg Gum) 4 mg BUCCAL Q2H PRN PRN Reason: Nicotine Cravings Senna/Docusate Sodium (Sennosides/Docusate Sodium Tablet) 1 tab PO BID PRN PRN Reason: Constipation Trazodone HCl (Trazodone Hcl 50 Mg Tablet) 50 mg PO BEDTIME MRX1 PRN PRN Reason: Insomnia Allergies Allergies Allergy/AdvReac Type Severity Reaction Status Date / Time No Known Allergies Allergy Verified 08/06/24 22:09 Assessment & Plan Assessment & Plan (1) Psychosis: Status: Acute Code(s): F29 - Unspecified psychosis not due to a substance or known physiological condition (2) PTSD (post-traumatic stress disorder): Status: Acute Code(s): F43.10 - Post-traumatic stress disorder, unspecified Plan Patient is a 34-year-old female with history of psychosis who presented to ER with family due to not eating or drinking and auditory hallucinations secondary to medication noncompliance. Plan: CV 15 minute safety checks Start: Risperdal 1 mg b.i.d. Obtain collateral Encourage groups Referral to outpatient psychiatric providers Discharge planning 08/08: Keeping to self. observing pacing unit hallway. Paranoid. Met with patient in unit office. presents guarded and thought blocking. She reports feeling okay then stated, you are infusing chemicals into this place to make me feel tired . She continues internally preoccupied but denies AH/VH. Pt walked out of interview room mid conversation when asked if she felt safe on the unit. per nursing, slept 7 hours. medication compliant. Continue current tx plan. 08/09: Keeping to self. Patient continues to present guarded. Some thought blocking, appears to be less than days prior. Patient reports feeling okay today; difficult to engage, delayed responses. When asked if she is still concerned if staff are infusing chemicals into hospital; pt denied every making this statement. Continue current tx plan. 08/10: c/o constipation, agreed to take senna/docusate, then refused when offered. bizarre posturing, poor eye contact. continue current mgmt, appears to be experiencing gradual improvement. 08/11: refusing meds. not engaging with staff. walking the unit. continue to offer appropriate medication. 08/12: Keeping to self. Per nursing, asked for medication this morning d/t auditory hallucinations. When T/W went to meet with her, pt declined to meet. Would not answer questions, sat on bed with blanket wrapped around self. Appears internally preoccupied, smiling and giggling at times. Risperidal increased to 1mg PO daily and 2mg PO bedtime. 08/13: Keeping to self. Observed pacing unit hallway. Guarded. Pt had verbal outburst this morning where she began to cry and scream; pt was able to calm self down. Declined medications last night and this morning. Patient came up to T/W and stated, I'm hearing voices ; she was encouraged to take medication prescribed; when nursing offered, pt declined medication. per nursing, showered. DC Risperidal. Start: Haldol 5mg PO BID 08/14: Observed pacing unit hallway. Guarded. per nursing, pt has been wandering into other patient's room. When asked why she is doing this, pt stated, I'm tidying up ; pt asked to please not go into peers rooms. Medication compliant last night and this morning; denies any side effects. Continues responding with brief answers and in a low volume. blunted affect. denies AH/VH today. Start: Depakote 250mg PO BID T/W called pt's aunt Elo to obtain collateral; awaiting callback. 08/15: keeping to self. pacing unit hallway. Patient tearful during assessment; pt reports feeling depressed ; she reports suicidal ideation because I said things about my family ; pt would not go into detail. She reports auditory hallucinations that criticize her. per nursing, pt requested to take medication but declined when offered. 08/16: keeping to self. guarded today; responding with one word answers. she reports feeling okay , flat affect; took depakote but refused haldol and ativan. T/W spoke with patient's sister, Geena, who reports family does not have a hx of mental illness and pt began acting bizarre last year when [place] came [place] Geena stated, last year when she came to [facility] she started acting like this. I know she told me it was very stressful for her to come to [facility] . Geena reports she is not aware of any hx of possible trauma. She reports plan was for patient to move to [place] to be with her this month but patient cancelled plans without a reason. 08/17: keeping to self. guarded. flat affect; took depakote and haldol this morning but refused HS meds last night. Patient presents more organized during conversation; She reports feeling depressed because I'm in the hospital ; she reports plan of going to [place] to stay with her sister when discharged. When asked if she is having auditory hallucinations; pt stated, I never said had them ; when reminded she had previously told staff and T/W that she was experiences auditory hallucinations, pt stated, No I didn't . denies SI/HI/VH/AH. Patient educated on: diagnosis and medication risk/benefits Reason for continued inpatient stay Substantial Risk for: med/psych decompensation Time Spent With Patient Time: Total time managing care of this patient today _20___ minutes.
[2024-08-17 20:00] VITALS: RESP 16
[2024-08-18 07:25] VITALS: BP 87/56; PULSE 85; RESP 14; TEMP 36.9; O2SAT 100
[2024-08-18 08:15] VITALS: BP 106/64; PULSE 91
--- NOTE | 2024-08-18 09:15 | HO.PSYCHPN ---
Subjective Subjective Date of Service: 08/18/24 Reason For Visit: unspecified schizophrenia Subjective Notes: Conditional Voluntary Interim History: keeping to self. guarded. flat affect; overheard crying loudly in room. Pt reports crying d/t missing her child and family. Pt decline medications; pt stated, I don't need medicine because I am better . She reports quieter auditory hallucinations; pt stated, some are the voices are familiar and some I don't know. They are quieter than before . denies SI/HI/VH. Medication Compliance: Intermittent Side effects from medications: No Attending Groups: No Review of Systems Constitutional: Reports as per HPI Eyes: Reports as per HPI Reports as per HPI Cardiovascular: Reports as per HPI Respiratory: Reports as per HPI Gastrointestinal: Reports as per HPI Musculoskeletal: Reports as per HPI Skin/Breast: Reports as per HPI Reports as per HPI Psychiatric: Reports as per HPI Endocrine: Reports as per HPI Hematologic/Lymphatic: Reports as per HPI Allergic/Immunologic: Reports as per HPI Mental Status Exam Mental Status Exam Narrative: Pt is alert and oriented; behavior is guarded, tearful; mood is described as better ; eye contact appropriate; Speech is normal rate, low volume and not pressured;denies SI/HI/VH. keeping to self. difficult to engage. Pt reports decreased auditory hallucinations. Diagnostics Vital Signs (24Hr): Vital Signs - 24 hr 08/17/24 20:00 08/18/24 07:25 08/18/24 08:15 Temperature 98.5 F Pulse Rate 85 91 Respiratory Rate 16 14 Blood Pressure 87/56 L 106/64 Pulse Oximetry 100 Oxygen Delivery Method Room Air BMI result Body Mass Index 16.7 Medications Medications Current Medications Acetaminophen (Acetaminophen 325 Mg Tablet) 650 mg PO Q6H PRN PRN Reason: Headache/Pain Mild Scale (1-3) Last Admin: 08/16/24 20:17 Dose: 650 mg Al Hydroxide/Mg Hydroxide (Magnesium Hydrox/Alum Hydrox 30 Ml Oral.Susp) 30 ml PO Q6H PRN PRN Reason: Heartburn/Nausea Divalproex Sodium (Divalproex Sodium 250 Mg Tablet.Dr) 250 mg PO BID [facility] Last Admin: 08/17/24 21:15 Dose: Not Given Haloperidol (Haloperidol 5 Mg Tablet) 5 mg PO BID [facility] Last Admin: 08/17/24 21:15 Dose: Not Given Hydroxyzine HCl (Hydroxyzine Hcl 25 Mg Tablet) 25 mg PO Q6H PRN PRN Reason: Anxiety Lorazepam (Lorazepam 1 Mg Tablet) 1 mg PO BEDTIME [facility] Last Admin: 08/17/24 21:15 Dose: Not Given Magnesium Hydroxide (Milk Of Magnesia 30 Ml Oral.Susp) 30 ml PO DAILY PRN PRN Reason: Constipation Nicotine Polacrilex (Nicotine Polacrilex 2 Mg Gum) 4 mg BUCCAL Q2H PRN PRN Reason: Nicotine Cravings Senna/Docusate Sodium (Sennosides/Docusate Sodium Tablet) 1 tab PO BID PRN PRN Reason: Constipation Trazodone HCl (Trazodone Hcl 50 Mg Tablet) 50 mg PO BEDTIME MRX1 PRN PRN Reason: Insomnia Allergies Allergies Allergy/AdvReac Type Severity Reaction Status Date / Time No Known Allergies Allergy Verified 08/06/24 22:09 Assessment & Plan Assessment & Plan (1) Psychosis: Status: Acute Code(s): F29 - Unspecified psychosis not due to a substance or known physiological condition (2) PTSD (post-traumatic stress disorder): Status: Acute Code(s): F43.10 - Post-traumatic stress disorder, unspecified Plan Patient is a 34-year-old female with history of psychosis who presented to ER with family due to not eating or drinking and auditory hallucinations secondary to medication noncompliance. Plan: CV 15 minute safety checks Start: Risperdal 1 mg b.i.d. Obtain collateral Encourage groups Referral to outpatient psychiatric providers Discharge planning 08/08: Keeping to self. observing pacing unit hallway. Paranoid. Met with patient in unit office. presents guarded and thought blocking. She reports feeling okay then stated, you are infusing chemicals into this place to make me feel tired . She continues internally preoccupied but denies AH/VH. Pt walked out of interview room mid conversation when asked if she felt safe on the unit. per nursing, slept 7 hours. medication compliant. Continue current tx plan. 08/09: Keeping to self. Patient continues to present guarded. Some thought blocking, appears to be less than days prior. Patient reports feeling okay today; difficult to engage, delayed responses. When asked if she is still concerned if staff are infusing chemicals into hospital; pt denied every making this statement. Continue current tx plan. 08/10: c/o constipation, agreed to take senna/docusate, then refused when offered. bizarre posturing, poor eye contact. continue current mgmt, appears to be experiencing gradual improvement. 08/11: refusing meds. not engaging with staff. walking the unit. continue to offer appropriate medication. 08/12: Keeping to self. Per nursing, asked for medication this morning d/t auditory hallucinations. When T/W went to meet with her, pt declined to meet. Would not answer questions, sat on bed with blanket wrapped around self. Appears internally preoccupied, smiling and giggling at times. Risperidal increased to 1mg PO daily and 2mg PO bedtime. 08/13: Keeping to self. Observed pacing unit hallway. Guarded. Pt had verbal outburst this morning where she began to cry and scream; pt was able to calm self down. Declined medications last night and this morning. Patient came up to T/W and stated, I'm hearing voices ; she was encouraged to take medication prescribed; when nursing offered, pt declined medication. per nursing, showered. DC Risperidal. Start: Haldol 5mg PO BID 08/14: Observed pacing unit hallway. Guarded. per nursing, pt has been wandering into other patient's room. When asked why she is doing this, pt stated, I'm tidying up ; pt asked to please not go into peers rooms. Medication compliant last night and this morning; denies any side effects. Continues responding with brief answers and in a low volume. blunted affect. denies AH/VH today. Start: Depakote 250mg PO BID T/W called pt's aunt Elo to obtain collateral; awaiting callback. 08/15: keeping to self. pacing unit hallway. Patient tearful during assessment; pt reports feeling depressed ; she reports suicidal ideation because I said things about my family ; pt would not go into detail. She reports auditory hallucinations that criticize her. per nursing, pt requested to take medication but declined when offered. 08/16: keeping to self. guarded today; responding with one word answers. she reports feeling okay , flat affect; took depakote but refused haldol and ativan. T/W spoke with patient's sister, Geena, who reports family does not have a hx of mental illness and pt began acting bizarre last year when [place] came [place] Geena stated, last year when she came to [facility] she started acting like this. I know she told me it was very stressful for her to come to [facility] . Geena reports she is not aware of any hx of possible trauma. She reports plan was for patient to move to [place] to be with her this month but patient cancelled plans without a reason. 08/17: keeping to self. guarded. flat affect; took depakote and haldol this morning but refused HS meds last night. Patient presents more organized during conversation; She reports feeling depressed because I'm in the hospital ; she reports plan of going to [place] to stay with her sister when discharged. When asked if she is having auditory hallucinations; pt stated, I never said had them ; when reminded she had previously told staff and T/W that she was experiences auditory hallucinations, pt stated, No I didn't . denies SI/HI/VH/AH. 08/18: keeping to self. guarded. flat affect; overheard crying loudly in room. Pt reports crying d/t missing her child and family. Pt decline medications; pt stated, I don't need medicine because I am better . She reports quieter auditory hallucinations; pt stated, some are the voices are familiar and some I don't know. They are quieter than before . Patient educated on: diagnosis and medication risk/benefits Reason for continued inpatient stay Substantial Risk for: med/psych decompensation Time Spent With Patient Time: Total time managing care of this patient today _20___ minutes.
[2024-08-18 20:00] VITALS: BP 114/64; PULSE 91; RESP 16; TEMP 36.8; O2SAT 98
[2024-08-19 08:00] VITALS: BP 94/58; PULSE 83; TEMP 36.4; O2SAT 99
[2024-08-19] MEDS: Divalproex Sodium 250 MG TABLET.DR PO (10:33)
[2024-08-19] MEDS: LORazepam 1 MG TABLET 2 MG PO (16:22)
[2024-08-19] MEDS: HaloperidoL 5 MG TABLET PO (16:22)
[2024-08-19 17:30] VITALS: BP 100/62; PULSE 86
--- NOTE | 2024-08-19 18:53 | PC.NURSE ---
Per ancillary staff patient states I'm suffering , I want to because of the voices. Observed on knees rocking. Voice sounding like howl. Accepted PRN Haldol 5mg and Ativan 2mg. Shortly following medication patient c/o feeling dizzy. Orthostatic VS obtained.Patient then reported voices come and go. Tell her how to behave like the 5th child , random stuff . Reports she will hear childrens' voices and voice of her sister. Reported the medication was helpful. Support and reassurance provided.
--- NOTE | 2024-08-19 19:02 | P.PNPSI_ITS ---
Subjective Subjective Date of Service: 08/19/24 Reason For Visit: unspecified schizophrenia Interim History: Vianey refused a.m. meds per team. In our meeting she is tearful with paranoia and distance. I don't need medicine, because I am not depressed (cries) . After our meeting she approaches tw a few times to add comments to our discussion, I think I look better so you should just send me home. Restless appearing and pacing at times. Accepted medicine later in the day for her primary nurse, Haldol and Ativan were re-ordered. Medication Compliance: Intermittent Side effects from medications: No Attending Groups: No Review of Systems Acute medical concerns: No Review of Systems Review of Systems Pt denies today Mental Status Exam Mental Status Exam Patient Appearance: Appropriate Patient Orientation: Person and Place Level of Consciousness: Alert Patient Behavior: Guarded, Talkative, Suspicious, Resistive to Care, D istractible, Isolative, Good Eye Contact and Crying Mood Description: Depressed Affect Description: Flat Patient Cognition Impaired: No Ability to Follow Directions: Good Speech Pattern: Spontaneous Speech Memory Description: Episodic Impaired (?thought blocking) Hallucinations: None (pt denies) Delusions: Paranoid Ideation and Present Perceptual Disturbances: Derealization Thought Process: Distracted and Rumination Thought Content: positive for Circumstantial, positive for Goal Oriented and positive for Suicidal Ideation (denies) Depressive Symptoms: Increased Anxiety and Thoughts of /Suicide (denies) Abnormal Motor Activity Signs and Symptoms: Restlessness Judgement: Poor Diagnostics Vital Signs (24Hr): Vital Signs - 24 hr 08/18/24 20:00 08/19/24 08:00 Temperature 98.3 F 97.5 F Pulse Rate 91 83 Respiratory Rate 16 Blood Pressure 114/64 94/58 L Pulse Oximetry 98 99 Oxygen Delivery Method Room Air Room Air BMI result Body Mass Index 16.7 Medications Medications Current Medications Acetaminophen (Acetaminophen 325 Mg Tablet) 650 mg PO Q6H PRN PRN Reason: Headache/Pain Mild Scale (1-3) Last Admin: 08/16/24 20:17 Dose: 650 mg Al Hydroxide/Mg Hydroxide (Magnesium Hydrox/Alum Hydrox 30 Ml Oral.Susp) 30 ml PO Q6H PRN PRN Reason: Heartburn/Nausea Divalproex Sodium (Divalproex Sodium 250 Mg Tablet.Dr) 250 mg PO BID [facility] Last Admin: 08/19/24 10:33 Dose: 250 mg Haloperidol (Haloperidol 5 Mg Tablet) 5 mg PO BID [facility] Last Admin: 08/19/24 08:34 Dose: Not Given Hydroxyzine HCl (Hydroxyzine Hcl 25 Mg Tablet) 25 mg PO Q6H PRN PRN Reason: Anxiety Lorazepam (Lorazepam 1 Mg Tablet) 1 mg PO BEDTIME [facility] Last Admin: 08/18/24 20:12 Dose: Not Given Magnesium Hydroxide (Milk Of Magnesia 30 Ml Oral.Susp) 30 ml PO DAILY PRN PRN Reason: Constipation Nicotine Polacrilex (Nicotine Polacrilex 2 Mg Gum) 4 mg BUCCAL Q2H PRN PRN Reason: Nicotine Cravings Senna/Docusate Sodium (Sennosides/Docusate Sodium Tablet) 1 tab PO BID PRN PRN Reason: Constipation Trazodone HCl (Trazodone Hcl 50 Mg Tablet) 50 mg PO BEDTIME MRX1 PRN PRN Reason: Insomnia Allergies Allergies Allergy/AdvReac Type Severity Reaction Status Date / Time No Known Allergies Allergy Verified 08/06/24 22:09 Assessment & Plan Assessment & Plan (1) Psychosis: Status: Acute Code(s): F29 - Unspecified psychosis not due to a substance or known physiological condition (2) PTSD (post-traumatic stress disorder): Status: Acute Code(s): F43.10 - Post-traumatic stress disorder, unspecified Plan Patient is a 34-year-old female with history of psychosis who presented to ER with family due to not eating or drinking and auditory hallucinations secondary to medication noncompliance. Plan: CV 15 minute safety checks Start: Risperdal 1 mg b.i.d. Obtain collateral Encourage groups Referral to outpatient psychiatric providers Discharge planning 08/08: Keeping to self. observing pacing unit hallway. Paranoid. Met with patient in unit office. presents guarded and thought blocking. She reports feeling okay then stated, you are infusing chemicals into this place to make me feel tired . She continues internally preoccupied but denies AH/VH. Pt walked out of interview room mid conversation when asked if she felt safe on the unit. per nursing, slept 7 hours. medication compliant. Continue current tx plan. 08/09: Keeping to self. Patient continues to present guarded. Some thought blocking, appears to be less than days prior. Patient reports feeling okay t artem; difficult to engage, delayed responses. When asked if she is still concerned if staff are infusing chemicals into hospital; pt denied every making this statement. Continue current tx plan. 08/10: c/o constipation, agreed to take senna/docusate, then refused when offered. bizarre posturing, poor eye contact. continue current mgmt, appears to be experiencing gradual improvement. 08/11: refusing meds. not engaging with staff. walking the unit. continue to offer appropriate medication. 08/12: Keeping to self. Per nursing, asked for medication this morning d/t auditory hallucinations. When T/W went to meet with her, pt declined to meet. Would not answer questions, sat on bed with blanket wrapped around self. Appears internally preoccupied, smiling and giggling at times. Risperidal increased to 1mg PO daily and 2mg PO bedtime. 08/13: Keeping to self. Observed pacing unit hallway. Guarded. Pt had verbal outburst this morning where she began to cry and scream; pt was able to calm self down. Declined medications last night and this morning. Patient came up to T/W and stated, I'm hearing voices ; she was encouraged to take medication prescribed; when nursing offered, pt declined medication. per nursing, showered. DC Risperidal. Start: Haldol 5mg PO BID 08/14: Observed pacing unit hallway. Guarded. per nursing, pt has been wandering into other patient's room. When asked why she is doing this, pt stated, I'm tidying up ; pt asked to please not go into peers rooms. Medication compliant last night and this morning; denies any side effects. Continues responding with brief answers and in a low volume. blunted affect. denies AH/VH today. Start: Depakote 250mg PO BID T/W called pt's aunt Elo to obtain collateral; awaiting callback. 08/15: keeping to self. pacing unit hallway. Patient tearful during assessment; pt reports feeling depressed ; she reports suicidal ideation because I said things about my family ; pt would not go into detail. She reports auditory hallucinations that criticize her. per nursing, pt requested to take medication but declined when offered. 08/16: keeping to self. guarded today; responding with one word answers. she reports feeling okay , flat affect; took depakote but refused haldol and ativan. T/W spoke with patient's sister, Geena, who reports family does not have a hx of mental illness and pt began acting bizarre last year when [place] came to [place] Geena stated, last year when she came to [facility] she started acting like this. I know she told me it was very stressful for her to come to [facility] . Geena reports she is not aware of any hx of possible trauma. She reports plan was for patient to move to [place] to be with her this month but patient cancelled plans without a reason. 08/17: keeping to self. guarded. flat affect; took depakote and haldol this morning but refused HS meds last night. Patient presents more organized during conversation; She reports feeling depressed because I'm in the hospital ; she reports plan of going to [place] to stay with her sister when discharged. When asked if she is having auditory hallucinations; pt stated, I never said had them ; when reminded she had previously told staff and T/W that she was experiences auditory hallucinations, pt stated, No I didn't . denies SI/HI/VH/AH. 08/18: keeping to self. guarded. flat affect; overheard crying loudly in room. Pt reports crying d/t missing her child and family. Pt decline medications; pt stated, I don't need medicine because I am better . She reports quieter auditory hallucinations; pt stated, some are the voices are familiar and some I don't know. They are quieter than before . 08/19: quiet, able to meet, cried. Wanting to go home. Struggling with needing medicine, telling me she does not, but later in the day asks for it as sx are far too overwhelming. Restless with paranoia. Reason for continued inpatient stay Substantial Risk for: rapid decompensation Time Spent With Patient Time: Total time managing care of this patient today ____ minutes.
[2024-08-19 20:00] VITALS: BP 104/65; PULSE 110; RESP 16; TEMP 36.7; O2SAT 100
--- NOTE | 2024-08-20 01:38 | PC.NURSE ---
Vianey's sister, Geena Lincoln , has called several times on various evenings hoping to speak with Vianey's provider Keren Patel. Geena has asked that Keren contact her at any time on 08/20/2024, or any day, as she is very concerned for her sister's wellbeing. Geena stated on the evening of 08/19 that she had bought a ticket to come from [place] to [place] and she expected her sister to be discharged to her care. This underwriter mortgage loan explained to the patients sister that Vianey is not currently scheduled for discharge and that it would be a better to speak with the doctor to have a better understanding of the patients care at [facility] before coming to [place] and expecting her sister to be discharged immediately.
[2024-08-20] MEDS: Divalproex Sodium 250 MG TABLET.DR PO (09:19)
[2024-08-20] MEDS: HaloperidoL 5 MG TABLET PO (09:19)
--- NOTE | 2024-08-20 09:33 | P.PNPSI_ITS ---
Subjective Subjective Date of Service: 08/20/24 Reason For Visit: unspecified schizophrenia Subjective Notes: Conditional Voluntary Interim History: Pacing unit hallway. keeping to self. crying loudly at times. patient reports feeling sad d/t missing her family. Pt reports auditory hallucinations that tell me about my family . Pt stated, I don't want to leave. I want to stay here. I was thinking I was okay and didn't need medications but now I know I need it . denies SI/HI/VH. Medication Compliance: Intermittent Side effects from medications: No Attending Groups: No Review of Systems Constitutional: Reports as per HPI Eyes: Reports as per HPI Reports as per HPI Cardiovascular: Reports as per HPI Respiratory: Reports as per HPI Gastrointestinal: Reports as per HPI Musculoskeletal: Reports as per HPI Skin/Breast: Reports as per HPI Reports as per HPI Psychiatric: Reports as per HPI Endocrine: Reports as per HPI Hematologic/Lymphatic: Reports as per HPI Allergic/Immunologic: Reports as per HPI Mental Status Exam Mental Status Exam Narrative: Pt is alert and oriented; behavior is calm, guarded; mood is described as sad ; crying at times. ; eye contact appropriate; Speech is normal rate, low volume and not pressured;denies SI/HI/VH. keeping to self. difficult to engage. Pt reports decreased auditory hallucinations. Diagnostics Vital Signs (24Hr): Vital Signs - 24 hr 08/19/24 17:30 08/19/24 20:00 Temperature 98.1 F Pulse Rate 86 110 H Respiratory Rate 16 Blood Pressure 100/62 104/65 Pulse Oximetry 100 Oxygen Delivery Method Room Air BMI result Body Mass Index 16.7 Medications Medications Current Medications Acetaminophen (Acetaminophen 325 Mg Tablet) 650 mg PO Q6H PRN PRN Reason: Headache/Pain Mild Scale (1-3) Last Admin: 08/16/24 20:17 Dose: 650 mg Al Hydroxide/Mg Hydroxide (Magnesium Hydrox/Alum Hydrox 30 Ml Oral.Susp) 30 ml PO Q6H PRN PRN Reason: Heartburn/Nausea Divalproex Sodium (Divalproex Sodium 250 Mg Tablet.Dr) 250 mg PO BID [facility] Last Admin: 08/20/24 09:19 Dose: 250 mg Haloperidol (Haloperidol 5 Mg Tablet) 5 mg PO BID [facility] Last Admin: 08/20/24 09:19 Dose: 5 mg Hydroxyzine HCl (Hydroxyzine Hcl 25 Mg Tablet) 25 mg PO Q6H PRN PRN Reason: Anxiety Lorazepam (Lorazepam 1 Mg Tablet) 1 mg PO BEDTIME [facility] Last Admin: 08/19/24 23:49 Dose: Not Given Magnesium Hydroxide (Milk Of Magnesia 30 Ml Oral.Susp) 30 ml PO DAILY PRN PRN Reason: Constipation Nicotine Polacrilex (Nicotine Polacrilex 2 Mg Gum) 4 mg BUCCAL Q2H PRN PRN Reason: Nicotine Cravings Senna/Docusate Sodium (Sennosides/Docusate Sodium Tablet) 1 tab PO BID PRN PRN Reason: Constipation Trazodone HCl (Trazodone Hcl 50 Mg Tablet) 50 mg PO BEDTIME MRX1 PRN PRN Reason: Insomnia Allergies Allergies Allergy/AdvReac Type Severity Reaction Status Date / Time No Known Allergies Allergy Verified 08/06/24 22:09 Assessment & Plan Assessment & Plan (1) Psychosis: Status: Acute Code(s): F29 - Unspecified psychosis not due to a substance or known physiological condition (2) PTSD (post-traumatic stress disorder): Status: Acute Code(s): F43.10 - Post-traumatic stress disorder, unspecified Plan Patient is a 34-year-old female with history of psychosis who presented to ER with family due to not eating or drinking and auditory hallucinations secondary to medication noncompliance. Plan: CV 15 minute safety checks Start: Risperdal 1 mg b.i.d. Obtain collateral Encourage groups Referral to outpatient psychiatric providers Discharge planning 08/08: Keeping to self. observing pacing unit hallway. Paranoid. Met with patient in unit office. presents guarded and thought blocking. She reports feeling okay then stated, you are infusing chemicals into this place to make me feel tired . She continues internally preoccupied but denies AH/VH. Pt walked out of interview room mid conversation when asked if she felt safe on the unit. per nursing, slept 7 hours. medication compliant. Continue current tx plan. 08/09: Keeping to self. Patient continues to present guarded. Some thought blocking, appears to be less than days prior. Patient reports feeling okay today; difficult to engage, delayed responses. When asked if she is still concerned if staff are infusing chemicals into hospital; pt denied every making this statement. Continue current tx plan. 08/10: c/o constipation, agreed to take senna/docusate, then refused when offered. bizarre posturing, poor eye contact. continue current mgmt, appears to be experiencing gradual improvement. 08/11: refusing meds. not engaging with staff. walking the unit. continue to offer appropriate medication. 08/12: Keeping to self. Per nursing, asked for medication this morning d/t auditory hallucinations. When T/W went to meet with her, pt declined to meet. Would not answer questions, sat on bed with blanket wrapped around self. Appears internally preoccupied, smiling and giggling at times. Risperidal increased to 1mg PO daily and 2mg PO bedtime. 08/13: Keeping to self. Observed pacing unit hallway. Guarded. Pt had verbal outburst this morning where she began to cry and scream; pt was able to calm self down. Declined medications last night and this morning. Patient came up to T/W and stated, I'm hearing voices ; she was encouraged to take medication prescribed; when nursing offered, pt declined medication. per nursing, showered. DC Risperidal. Start: Haldol 5mg PO BID 08/14: Observed pacing unit hallway. Guarded. per nursing, pt has been wandering into other patient's room. When asked why she is doing this, pt stated, I'm tidying up ; pt asked to please not go into peers rooms. Medication compliant last night and this morning; denies any side effects. Continues responding with brief answers and in a low volume. blunted affect. denies AH/VH today. Start: Depakote 250mg PO BID T/W called pt's aunt Elo to obtain collateral; awaiting callback. 08/15: keeping to self. pacing unit hallway. Patient tearful during assessment; pt reports feeling depressed ; she reports suicidal ideation because I said things about my family ; pt would not go into detail. She reports auditory hallucinations that criticize her. per nursing, pt requested to take medication but declined when offered. 08/16: keeping to self. guarded today; responding with one word answers. she reports feeling okay , flat affect; took depakote but refused haldol and ativan. T/W spoke with patient's sister, Geena, who reports family does not have a hx of mental illness and pt began acting bizarre last year when [place] came [place] Geena stated, last year when she came to [facility] she started acting like this. I know she told me it was very stressful for her to come to [facility] . Geena reports she is not aware of any hx of possible trauma. She reports plan was for patient to move to [place] to be with her this month but patient cancelled plans without a reason. 08/17: keeping to self. guarded. flat affect; took depakote and haldol this morning but refused HS meds last night. Patient presents more organized during conversation; She reports feeling depressed because I'm in the hospital ; she reports plan of going to [place] to stay with her sister when discharged. When asked if she is having auditory hallucinations; pt stated, I never said had them ; when reminded she had previously told staff and T/W that she was experiences auditory hallucinations, pt stated, No I didn't . denies SI/HI/VH/AH. 08/18: keeping to self. guarded. flat affect; overheard crying loudly in room. Pt reports crying d/t missing her child and family. Pt decline medications; pt stated, I don't need medicine because I am better . She reports quieter auditory hallucinations; pt stated, some are the voices are familiar and some I don't know. They are quieter than before . 08/19: quiet, able to meet, cried. Wanting to go home. Struggling with needing medicine, telling me she does not, but later in the day asks for it as sx are far too overwhelming. Restless with paranoia. 08/20: Pacing unit hallway. keeping to self. crying loudly at times. patient reports feeling sad d/t missing her family. Pt reports auditory hallucinations that tell me about my family . Pt stated, I don't want to leave. I want to stay here. I was thinking I was okay and didn't need medications but now I know I need it . denies SI/HI/VH. Continue current tx plan. encourage medication compliance. Patient educated on: diagnosis and medication risk/benefits Reason for continued inpatient stay Substantial Risk for: med/psych decompensation Time Spent With Patient Time: Total time managing care of this patient today _20___ minutes.
[2024-08-20 11:53] VITALS: BP 106/65; PULSE 109; RESP 16; O2SAT 100
--- NOTE | 2024-08-20 11:54 | PC.NURSE ---
Pt c/o dizziness, VS NL for pt. Pt education provided re adequate fluids and food intake. Pt verbalized understanding
--- NOTE | 2024-08-20 22:08 | PC.NURSE ---
Vianey refused VS to be taken tonight. She also refused night meds: Depakote 250mg, Haldol 5mg, and Ativan 1mg. Vianey reports that those meds make her cry all day and does not want to take them. Vianey also cut short our 1:1 MH assessment stating Can we talk tomorrow instead? I don't feel like talking tonight .
--- NOTE | 2024-08-21 09:21 | P.PNPSI_ITS ---
Subjective Subjective Date of Service: 08/21/24 Reason For Visit: unspecified schizophrenia Subjective Notes: 3 Day Interim History: 3 day up on 08/23/24. Pacing unit hallway. keeping to self. Patient reports feeling okay today; pt reports she signed 3 day notice because she would like to go home. Pt stated, I was crying yesterday because I was having flashbacks of my dad passing away . Pt reports she has been refusing medications last night and this morning because she doesn't need them because I'm better ; denies SI/HI/VH/AH. T/W spoke with pt's sister, Geena, who reports she [place] and bring her back with her so she is able to care for her and live in Halina's home. [facility] Medication Compliance: Intermittent Side effects from medications: No Attending Groups: No Review of Systems Constitutional: Reports as per HPI Eyes: Reports as per HPI Reports as per HPI Cardiovascular: Reports as per HPI Respiratory: Reports as per HPI Gastrointestinal: Reports as per HPI Musculoskeletal: Reports as per HPI Skin/Breast: Reports as per HPI Reports as per HPI Psychiatric: Reports as per HPI Endocrine: Reports as per HPI Hematologic/Lymphatic: Reports as per HPI Allergic/Immunologic: Reports as per HPI Mental Status Exam Mental Status Exam Narrative: Pt is alert and oriented; behavior is calm, guarded; mood is described as okay ; eye contact appropriate; Speech is normal rate, low volume and not pressured; focused on discharge; denies SI/HI/VH/AH. Diagnostics Vital Signs (24Hr): Vital Signs - 24 hr 08/20/24 11:53 Pulse Rate 109 H Respiratory Rate 16 Blood Pressure 106/65 Pulse Oximetry 100 Oxygen Delivery Method Room Air BMI result Body Mass Index 16.7 Medications Medications Current Medications Acetaminophen (Acetaminophen 325 Mg Tablet) 650 mg PO Q6H PRN PRN Reason: Headache/Pain Mild Scale (1-3) Last Admin: 08/16/24 20:17 Dose: 650 mg Al Hydroxide/Mg Hydroxide (Magnesium Hydrox/Alum Hydrox 30 Ml Oral.Susp) 30 ml PO Q6H PRN PRN Reason: Heartburn/Nausea Divalproex Sodium (Divalproex Sodium 250 Mg Tablet.Dr) 250 mg PO BID [facility] Last Admin: 12/04/24 08:26 Dose: Not Given Haloperidol (Haloperidol 5 Mg Tablet) 5 mg PO BID [facility] Last Admin: 08/21/24 08:26 Dose: Not Given Haloperidol (Haloperidol 5 Mg Tablet) 5 mg PO DAILY PRN PRN Reason: psychosis Hydroxyzine HCl (Hydroxyzine Hcl 25 Mg Tablet) 25 mg PO Q6H PRN PRN Reason: Anxiety Lorazepam (Lorazepam 1 Mg Tablet) 1 mg PO BEDTIME [facility] Last Admin: 08/20/24 21:09 Dose: Not Given Lorazepam (Lorazepam 1 Mg Tablet) 1 mg PO DAILY PRN PRN Reason: Anxiety Magnesium Hydroxide (Milk Of Magnesia 30 Ml Oral.Susp) 30 ml PO DAILY PRN PRN Reason: Constipation Nicotine Polacrilex (Nicotine Polacrilex 2 Mg Gum) 4 mg BUCCAL Q2H PRN PRN Reason: Nicotine Cravings Senna/Docusate Sodium (Sennosides/Docusate Sodium Tablet) 1 tab PO BID PRN PRN Reason: Constipation Trazodone HCl (Trazodone Hcl 50 Mg Tablet) 50 mg PO BEDTIME MRX1 PRN PRN Reason: Insomnia Allergies Allergies Allergy/AdvReac Type Severity Reaction Status Date / Time No Known Allergies Allergy Verified 08/06/24 22:09 Assessment & Plan Assessment & Plan (1) Psychosis: Status: Acute Code(s): F29 - Unspecified psychosis not due to a substance or known physiological condition (2) PTSD (post-traumatic stress disorder): Status: Acute Code(s): F43.10 - Post-traumatic stress disorder, unspecified Plan Patient is a 34-year-old female with history of psychosis who presented to ER with family due to not eating or drinking and auditory hallucinations secondary to medication noncompliance. Plan: CV 15 minute safety checks Start: Risperdal 1 mg b.i.d. Obtain collateral Encourage groups Referral to outpatient psychiatric providers Discharge planning 08/08: Keeping to self. observing pacing unit hallway. Paranoid. Met with patient in unit office. presents guarded and thought blocking. She reports feeling okay then stated, you are infusing chemicals into this place to make me feel tired . She continues internally preoccupied but denies AH/VH. Pt walked out of interview room mid conversation when asked if she felt safe on the unit. per nursing, slept 7 hours. medication compliant. Continue current tx plan. 08/09: Keeping to self. Patient continues to present guarded. Some thought blocking, appears to be less than days prior. Patient reports feeling okay today; difficult to engage, delayed responses. When asked if she is still concerned if staff are infusing chemicals into hospital; pt denied every making this statement. Continue current tx plan. 08/10: c/o constipation, agreed to take senna/docusate, then refused when offered. bizarre posturing, poor eye contact. continue current mgmt, appears to be experiencing gradual improvement. 08/11: refusing meds. not engaging with staff. walking the unit. continue to offer appropriate medication. 08/12: Keeping to self. Per nursing, asked for medication this morning d/t auditory hallucinations. When T/W went to meet with her, pt declined to meet. Would not answer questions, sat on bed with blanket wrapped around self. Appears internally preoccupied, smiling and giggling at times. Risperidal increased to 1mg PO daily and 2mg PO bedtime. 08/13: Keeping to self. Observed pacing unit hallway. Guarded. Pt had verbal outburst this morning where she began to cry and scream; pt was able to calm self down. Declined medications last night and this morning. Patient came up to T/W and stated, I'm hearing voices ; she was encouraged to take medication pre scribed; when nursing offered, pt declined medication. per nursing, showered. DC Risperidal. Start: Haldol 5mg PO BID 08/14: Observed pacing unit hallway. Guarded. per nursing, pt has been wandering into other patient's room. When asked why she is doing this, pt stated, I'm tidying up ; pt asked to please not go into peers rooms. Medication compliant last night and this morning; denies any side effects. Continues responding with brief answers and in a low volume. blunted affect. denies AH/VH today. Start: Depakote 250mg PO BID T/W called pt's aunt Elo to obtain collateral; awaiting callback. 08/15: keeping to self. pacing unit hallway. Patient tearful during assessment; pt reports feeling depressed ; she reports suicidal ideation because I said things about my family ; pt would not go into detail. She reports auditory hallucinations that criticize her. per nursing, pt requested to take medication but declined when offered. 08/16: keeping to self. guarded today; responding with one word answers. she reports feeling okay , flat affect; took depakote but refused haldol and ativan. T/W spoke with patient's sister, Geena, who reports family does not have a hx of mental illness and pt began acting bizarre last year when [place] Geena stated, last year when she came to [facility] she started acting like this. I know she told me it was very stressful for her to come to [facility] . Geena reports she is not aware of any hx of possible trauma. She reports plan was for patient to move to [place] to be with her this month but patient cancelled plans without a reason. 08/17: keeping to self. guarded. flat affect; took depakote and haldol this morning but refused HS meds last night. Patient presents more organized during conversation; She reports feeling depressed because I'm in the hospital ; she reports plan of going to [place] to stay with her sister when discharged. When asked if she is having auditory hallucinations; pt stated, I never said had them ; when reminded she had previously told staff and T/W that she was experiences auditory hallucinations, pt stated, No I didn't . denies SI/HI/VH/AH. 08/18: keeping to self. guarded. flat affect; overheard crying loudly in room. Pt reports crying d/t missing her child and family. Pt decline medications; pt stated, I don't need medicine because I am better . She reports quieter auditory hallucinations; pt stated, some are the voices are familiar and some I don't know. They are quieter than before . 08/19: quiet, able to meet, cried. Wanting to go home. Struggling with needing medicine, telling me she does not, but later in the day asks for it as sx are far too overwhelming. Restless with paranoia. 08/20: Pacing unit hallway. keeping to self. crying loudly at times. patient reports feeling sad d/t missing her family. Pt reports auditory hallucinations that tell me about my family . Pt stated, I don't want to leave. I want to stay here. I was thinking I was okay and didn't need medications but now I know I need it . denies SI/HI/VH. Continue current tx plan. encourage medication compliance. 08/21: 3 day up on 08/23/24. Pacing unit hallway. keeping to self. Patient reports feeling okay today; pt reports she signed 3 day notice because she would like to go home. Pt stated, I was crying yesterday because I was having flashbacks of my dad passing away . Pt reports she has been refusing medications last night and this morning because she doesn't need them because I'm better ; denies SI/HI/VH/AH. 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 Patient educated on: diagnosis and medication risk/benefits Reason for continued inpatient stay Substantial Risk for: stable for discharge Time Spent With Patient Time: Total time managing care of this patient today _20___ minutes.
[2024-08-21 20:00] VITALS: RESP 16
--- NOTE | 2024-08-22 09:02 | PM.PSYDC ---
DS: Providers Provider Date of Service: 08/22/24 Date of admission: 08/06/24 21:00 Date of discharge: 08/22/24 Primary care physician: None Physician Admitting clinician: Keren Patel Attending physician on admission: Mitchel Beard Consults: 08/06/24 22:09 Consult to Hospitalist Routine Comment: Consulting Provider: [facility] Hospitalists Reason For Exam: Transfer pt Attending physician on discharge: Christopher Baez Discharging clinician: Keren Patel DS: Diagnosis Discharge Diagnosis (1) Psychosis: Status: Acute (2) PTSD (post-traumatic stress disorder): Status: Acute DS: Medications Discharge Medications Home Medications: Previous Rx's ?Medication ?Instructions ?Recorded lorazepam 1 mg tablet 1 mg PO DAILY PRN anxiety 30 days 08/21/24 #30 tabs Mental Status Exam Mental Status Exam Narrative: Pt is alert and oriented; behavior is calm; mood is described as good ; eye contact appropriate; Speech is normal rate, low volume and not pressured; focused on discharge; denies SI/HI/VH/AH. DS: Summary Hospital Course Hospital Course: Patient is a 34-year-old female with history of psychosis who presented to ER with family due to not eating or drinking and auditory hallucinations secondary to medication noncompliance. Per crisis report, patient presented to ER with family due to not eating or drinking. Patient told family she is hearing voices and crying a lot. Family reports patient has a history of psychosis which has required inpatient hospitalization. History of taking risperidone, which she has not taken for quite some time. Patient history limited due to patient responding to internal stimuli during assessment. Utox negative. During admission assessment, patient presents calm, cooperative and guarded. Thought blocking. Delayed responses. Patient reports she came to the hospital because my friend brought me since I ate something I was not supposed to eat and I have not slept in 4 days . Patient did not disclose what she believes she ate that she was not supposed to. denies substance use. Utox negative. Patient signed CV and stated she would like help . denies SI/HI/VH/AH. Patient appears to be internally preoccupied during assessment. She reports history of having auditory hallucinations however, could not recall what medication she took to make her feel better. Discussed starting on risperidone; patient agreed to trial. Plan: CV 15 minute safety checks Start: Risperdal 1 mg b.i.d. Obtain collateral Encourage groups Referral to outpatient psychiatric providers Discharge planning Keeping to self. observing pacing unit hallway. Paranoid. Met with patient in unit office. presents guarded and thought blocking. She reports feeling okay then stated, you are infusing chemicals into this place to make me feel tired . She continues internally preoccupied but denies AH/VH. Pt walked out of interview room mid conversation when asked if she felt safe on the unit. per nursing, slept 7 hours. medication compliant. Continue current tx plan. Keeping to self. Patient continues to present guarded. Some thought blocking, appears to be less than days prior. Patient reports feeling okay today; difficult to engage, delayed responses. When asked if she is still concerned if staff are infusing chemicals into hospital; pt denied every making this statement. Continue current tx plan. c/o constipation, agreed to take senna/docusate, then refused when offered. bizarre posturing, poor eye contact. continue current mgmt, appears to be experiencing gradual improvement. Keeping to self. Per nursing, asked for medication this morning d/t auditory hallucinations. When T/W went to meet with her, pt declined to meet. Would not answer questions, sat on bed with blanket wrapped around self. Appears internally preoccupied, smiling and giggling at times. Risperidal increased to 1mg PO daily and 2mg PO bedtime. Keeping to self. Observed pacing unit hallway. Guarded. Pt had verbal outburst this morning where she began to cry and scream; pt was able to calm self down. Declined medications last night and this morning. Patient came up to T/W and stated, I'm hearing voices ; she was encouraged to take medication prescribed; when nursing offered, pt declined medication. per nursing, showered. DC Risperidal. Start: Haldol 5mg PO BID Observed pacing unit hallway. Guarded. per nursing, pt has been wandering into other patient's room. When asked why she is doing this, pt stated, I'm tidying up ; pt asked to please not go into peers rooms. Medication compliant last night and this morning; denies any side effects. Continues responding with brief answers and in a low volume. blunted affect. denies AH/VH today. Start: Depakote 250mg PO BID T/W called pt's aunt Elo to obtain collateral; awaiting callback. keeping to self. pacing unit hallway. Patient tearful during assessment; pt reports feeling depressed ; she reports suicidal ideation because I said things about my family ; pt would not go into detail. She reports auditory hallucinations that criticize her. per nursing, pt requested to take medication but declined when offered. keeping to self. guarded today; responding with one word answers. she reports feeling okay , flat affect; took depakote but refused haldol and ativan. T/W spoke with patient's sister, Geena, who reports family does not have a hx of mental illness and [place] stated, last year when she came to [facility] she started acting like this. I know she told me it was very stressful for her to come to [facility] . Geena reports she is not aware of any hx of possible trauma. She reports plan was for patient to move to [place] to be with her this month but patient cancelled plans without a reason. keeping to self. guarded. flat affect; took depakote and haldol this morning but refused HS meds last night. Patient presents more organized during conversation; She reports feeling depressed because I'm in the hospital ; she reports plan of going to [place] to stay with her sister when discharged. When asked if she is having auditory hallucinations; pt stated, I never said had them ; when reminded she had previously told staff and T/W that she was experiences auditory hallucinations, pt stated, No I didn't . denies SI/HI/VH/AH. keeping to self. guarded. flat affect; overheard crying loudly in room. Pt reports crying d/t missing her child and family. Pt decline medications; pt stated, I don't need medicine because I am better . She reports quieter auditory hallucinations; pt stated, some are the voices are familiar and some I don't know. They are quieter than before . quiet, able to meet, cried. Wanting to go home. Struggling with needing medicine, telling me she does not, but later in the day asks for it as sx are far too overwhelming. Restless with paranoia. Pacing unit hallway. keeping to self. crying loudly at times. patient reports feeling sad d/t missing her family. Pt reports auditory hallucinations that tell me about my family . Pt stated, I don't want to leave. I want to stay here. I was thinking I was okay and didn't need medications but now I know I need it . denies SI/HI/VH. Continue current tx plan. encourage medication compliance. 3 day up on 08/23/24. Pacing unit hallway. keeping to self. Patient reports feeling okay today; pt reports she signed 3 day notice because she would like to go home. Pt stated, I was crying yesterday because I was having flashbacks of my dad passing away . Pt reports she has been refusing medications last night and this morning because she doesn't need them because I'm better ; denies SI/HI/VH/AH. 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 Patient reports feeling good and ready to leave ; pt reports she plans on going with her sister to [place] and following up with outpatient providers if needed. denies SI/HI/VH/AH. Time spent discussing smoking cessation with patient: 3 to 10 minutes Status at Discharge Cognitive/behavioral status at discharge: Patient has a safety plan that includes presenting to the closest ER or calling 911 if feeling unsafe. Functional status at discharge: independent ambulation Overall status at discharge: patient is back to baseline Time Spent with Patient Time attestation: Total time managing care of this patient today _20___ minutes. Time spent: Less than 30 minutes Discharge Plan Discharge Anticipated Discharge Date/Time: 08/22/24 11:00 Patient Disposition: Home, Self-Care Discharge Diagnosis: PTSD Referrals: Physician,None [Primary Care Provider] - 1 Week Discharge Medications: New lorazepam 1 mg Tablet 1 mg PO DAILY PRN (Reason: anxiety) 30 Days Qty: 30 0RF Discharge Orders: Discharge Order (Routine); Ordered 08/22/24 Ordered By: Keren Patel Diet: Regular diet Activity on Discharge: As tolerated Stand Alone Forms: Patient Portal Discharge page, Community Support Print Language: Luxembour[place] Care Plan Goals: Maintain mood and safe behaviors Take medications as prescribed Practice coping skills Continue with outpatient providers and reach out to them as needed Health Concerns: Mood stability and behaviors Plan of Treatment: Follow up with your PCP, psychiatric provider and other outpatient providers regarding above concerns Take medications as prescribed Assessment: Patient has a safety plan that includes presenting to the closest ER or calling 911 if feeling unsafe.
[2024-08-22] MEDS: HaloperidoL 5 MG TABLET PO (11:17)
[2024-08-22] MEDS: Divalproex Sodium 250 MG TABLET.DR PO (11:17)
--- NOTE | 2024-08-22 12:26 | PC.NURSE ---
Patient easily engaged. Reports she is ready for discharge. Continues to report AH, voices tell her to take medication. Denies depression or sadness, denies SI/HI plan or intent. Denies feeling anxious. Discharge paperwork reviewed with patient, reports understanding. Medication reviewed with patient, reports understanding. Crisis numbers provided to patient, with resource booklet. Patient reports understanding. With patient permission discharge medication reviewed with sister. All belongings taken with patient.
== END 2024-08-22 11:58 | disposition home or self-care (01) | DRG 751 ==
LOC: HO.PM5 21:06 → HO.PADLT16 21:41
PROVIDERS: Admitting Provider Registered Nurse; Responsible Provider Registered Nurse; Visit Provider Psychiatry & Neurology Psychiatry
DX: F29 Unspecified psychosis not due to a substance or known physiological condition (principal); Z91.148 Patient's other noncompliance with medication regimen for other reason; F43.10 Post-traumatic stress disorder, unspecified; Z79.899 Other long term (current) drug therapy

== ENCOUNTER → 2024-08-06 21:00 | Outpatient (BNV) | payer MEDICAID, SELFPAY | PROVIDERS: Admitting Provider Registered Nurse; Responsible Provider Registered Nurse; Visit Provider Registered Nurse | DX: F29 Unspecified psychosis not due to a substance or known physiological condition (principal); F43.11 Post-traumatic stress disorder, acute | CPT/HCPCS: 90792; 99231; 99232; 99238 ==